=== PATIENT | male | born 1955 | race Caucasian/White ===

== ENCOUNTER 2019-08-19 16:01 | Emergency (ER) | payer BC, MEDICARE ==
--- OUTSIDE RECORDS SUMMARY | 2019-08-19 16:12 | XMS REPORT | Continuity of Care Document ---
:1955 External Reference #:[id number] Author Name Kishore Lewis M.D. (transmitted by agent of provider Jessica Richards) Address [address] [facility] [address] [place] [id number] Problems Active Problems Provider Date Pure hypercholesterolemia Kishore Leiws M.D. Onset: 12/13/2017 Social History Type Date Description Comments Sex Unknown ETOH Use Denies alcohol use Tobacco Use Start: Unknown End: Patient is a former smoker Recreational Drug Use Denies Drug Use Allergies, Adverse Reactions, Alerts Description No Known Drug Allergies Medications Active Medications SIG Qnty Indications Ordering Date Provider BD Pen use as directed 2-3 100units E11.65 Kishore Lewis Needle/Short/Ultra-Fi times per day Dory Naravez 9 ne/31G X 8mm 31G X 8 mm Misc Basaglar Kwikpen Inject 25 Units 30ml E11.65 Kishore Lewis Subcutaneously Dory Narvaez 9 100Unit/ML Solution Daily Pen-Inject Onetouch Delica Use For Fingersticks 100units E11.65 Kishore Lewis Lancets Extra Fine To Test Fasting Dory Narvaez 9 33G Blood Sugar Before Misc Meals And AT Bedtime Onetouch Ultra Use as Directed 1units E11.65 Kishore Lewis Control Dory Narvaez 9 Solution Pioglitazone HCL Take 1 Tablet Daily 90tabs E11.65 Kishore Lewis 45mg Brice NarvaezDTaqueria 9 Tablets Cyclobenzaprine HCL 1 tab by mouth three 90tabs M54.5 Kishore Lewis 5mg times a day as M., M.D. 8 Tablets needed Omeprazole Take 1 Capsule Daily 90caps K21.0 [facility] 20mg M., M.D. [address] Gamal Mcclure Use To Test Before 100units E11.65 [facility] Meals & AT Bedtime M., M.D. 8 Strips as Needed Advair Diskus inhale one puff by 180units J45.909 [facility] mouth twice a day M., M.D. 0 250-50mcg/Dose Aerosol J44.9 Clozapine 2 by mouth at 180tabs F41.9 [facility] 200mg Tablets bedtime M.D. F20.9 G47.00 Risperidone 1 tab by mouth 90tabs F20.9 [facility] 0.5mg Tablets M.D. Risperidone 1 tab by mouth at 90tabs F20.9 [facility]., 1mg Tablets bedtime M.D. Sertraline HCL 1 by mouth every 30tabs F33.9 [facility]., 100mg Tablets day M.D. F41.9 Cetirizine HCL take one tablet by 90tabs J30.9 [facility] 10mg Tablets mouth every day M.D. Atorvastatin Calcium Take 1 Tablet AT 90tabs E78.2 [facility]., 20mg Bedtime M.D. Tablets Janumet Take 1 Tablet 180tabs E11.65 [facility] 50-1000mg Tablets Twice A Day M.D. Medications Administered in Office Medication SIG Qnty Indications Ordering Provider Date Intradermal Mantoux Morro Flores, N.P. 02/27/2018 Injection Intradermal Mantoux Morro Flores, N.P. 02/20/2018 Injection Immunizations CPT Code Status Date Vaccine Lot # [id number] Given 02/11/2019 Flu Vaccine 3+Yrs Old(Fluzone) [id number] Given 03/01/2018 Flu Vaccine [id number] Vital Signs Date Vital Result Comment 08/19/2019 2:38pm BP Systolic 160 mmHg BP Diastolic 72 mmHg Height 72 inches 6'0" Heart Rate 108 /min Respiratory Rate 18 /min 07/15/2019 11:01am BP Systolic 138 mmHg BP Diastolic 65 mmHg Height 72 inches 6'0" Weight 239.00 lb BMI (Body Mass Index) 32.4 kg/m2 Heart Rate 94 /min Respiratory Rate 16 /min Results Test Acquired Date Facility Test Result H/L Range Note CBC With Diff 06/12/2019 [facility] [facility] WBC 10.0 10*3/uL (4.1-11.0) [address] [facility] (607)- - RBC 4.57 10*6/uL Low (4.60-6.10) HGB 13.2 g/dL Low (13.5-18.0) HCT 37.6 % Low (41.0-53.0) MCV 82.3 fL (80.0-95.0) MCH 28.9 pg (27.0-32.0) MCHC 35.1 g/dL (32.0-36.0) RDW 14.6 % High (10.5-14.5) PLT 209 10*3/uL (150-450) MPV 6.7 fL Low (7.1-10.7) Neut % 76.7 % High (35.0-75.0) Lymph % 15.3 % Low (16.0-52.0) Adams % 7.6 % (0.0-8.0) Eos % 0.0 % (0.0-5.0) Baso % 0.4 % (0.0-4.0) Neut # 7.7 10*3/uL (1.8-7.7) Lymph # 1.5 10*3/uL (1.2-4.8) Adams # 0.8 10*3/uL (0.0-0.8) Eos # 0.0 10*3/uL (0.0-0.5) Baso # 0.0 10*3/uL (0.0-0.2) CMP 06/12/2019 [facility] Sodium 140 mmol/L (136-145) [address] [facility] (607)- - Potassium 3.9 mmol/L (3.6-5.2) Chloride 106 mmol/L (100-108) Co2 26 mmol/L (22-31) Anion Gap 8 mmol/L (7-16) Urea Nitrogen 16 mg/dL (7-24) Creatinine 1.07 mg/dL (0.80-1.30) BUN/Creat Ratio 15.0 RATIO (10.0-20.0) Glucose 154 mg/dL High (70-99) Calcium 8.9 mg/dL (8.4-10.2) Total Protein 7.4 g/dL (6.4-8.2) Albumin 3.8 g/dL (3.2-4.5) Globulin 3.6 g/dL (2.7-4.3) Alb/Glob Ratio 1.1 RATIO Alkaline Phosphatase 148 U/L High (45-117) Bilirubin,Total 0.4 mg/dL (0.0-1.0) Ast (Sgot) 29 U/L (11-39) Alt (SGPT) 35 U/L (12-78) GFR >60 ml/min/1.73m2 (>59) GFR ( Amer) >60 ml/min/1.73m2 (>59) GFR Interpretation <SEE NOTE> 1 Hemoglobin A1c 06/12/2019 [facility] [place] Hemoglobin A1c @ 7.1 % High (4.0- 6.0) 2 [address] [facility] (607)- - Est Average Glucose 157 mg/dL Lipid 06/12/2019 [facility] [place] Cholesterol @ 172 mg/dL (0-200) [address] [facility] (607)- - Triglyceride @ 174 mg/dL (30-200) HDL Cholesterol @ 90 mg/dL (>40) 3 Chol/HDL Ratio 1.9 RATIO 4 LDL Chol (Calc) 47 mg/dL (<130) 5 Laboratory 06/12/2019 [facility] [place] TSH,Ultrasensitive @ 2.920 (0.360- 4.170) test finding [address] [facility] [facility] [place] mIU/L (607)- - CBC With Diff 04/10/2019 [facility] [place] WBC 6.4 (4.1-11.0) [facility] [place] 10*3/uL (607)- - RBC 4.94 10*6/uL (4.60-6.10) HGB 14.4 g/dL (13.5-18.0) HCT 41.5 % (41.0-53.0) MCV 83.9 fL (80.0-95.0) MCH 29.1 pg (27.0-32.0) MCHC 34.7 g/dL (32.0-36.0) RDW 14.6 % High (10.5-14.5) PLT 229 10*3/uL (150-450) MPV 6.6 fL Low (7.1-10.7) Neut % 74.8 % (35.0-75.0) Lymph % 16.8 % (16.0-52.0) Adams % 8.1 % High (0.0-8.0) Eos % 0.0 % (0.0-5.0) Baso % 0.3 % (0.0-4.0) Neut # 4.8 10*3/uL (1.8-7.7) Lymph # 1.1 10*3/uL Low (1.2-4.8) Adams # 0.5 10*3/uL (0.0-0.8) Eos # 0.0 10*3/uL (0.0-0.5) Baso # 0.0 10*3/uL (0.0-0.2) CMP 04/10/2019 [facility] [place] Sodium 140 mmol/L (136-145) [address] [facility] [facility] (607)- - Potassium 4.1 mmol/L (3.6-5.2) Chloride 109 mmol/L High (100-108) Co2 28 mmol/L (22-31) Anion Gap 3 mmol/L Low (7-16) Urea Nitrogen 13 mg/dL (7-24) Creatinine 1.09 mg/dL (0.80-1.30) BUN/Creat Ratio 11.9 RATIO (10.0-20.0) Glucose 128 mg/dL High (70-99) Calcium 9.2 mg/dL (8.4-10.2) Total Protein 7.5 g/dL (6.4-8.2) Albumin 4.0 g/dL (3.2-4.5) Globulin 3.5 g/dL (2.7-4.3) Alb/Glob Ratio 1.1 RATIO Alkaline Phosphatase 111 U/L (45-117) Bilirubin,Total 0.4 mg/dL (0.0-1.0) Ast (Sgot) 27 U/L (11-39) Alt (SGPT) 27 U/L (12-78) GFR >60 ml/min/1.73m2 (>59) GFR ( Amer) >60 ml/min/1.73m2 (>59) GFR Interpretation <SEE NOTE> 6 Lipid 04/10/2019 [facility] Cholesterol @ 196 mg/dL (0-200) [address] [facility] (607)- - Triglyceride @ 88 mg/dL (30-200) HDL Cholesterol @ 93 mg/dL (>40) 7 Chol/HDL Ratio 2.1 RATIO 8 LDL Chol (Calc) 85 mg/dL (<130) 9 Laboratory 04/10/2019 [facility] TSH,Ultrasensitive @ 2.710 (0.360- 4.170) test finding [address] [facility] mIU/L (607)- - Hemoglobin 04/10/2019 [facility] Hemoglobin A1c @ 7.8 % High (4.0-6.0) 10 A1c [address] [facility] (607)- - Est Average Glucose 177 mg/dL Laboratory test 04/10/2019 [facility] 25 Hydroxy Vit 29 ng/mL Low (31- 100) 11 finding [address] [facility] D @ (607)- - 1 NORMAL KIDNEY FUNCTION OR MILD DISEASE - GFR >OR= 60 CHRONIC KIDNEY DISEASE - GFR 15 - 59 RENAL FAILURE - GFR <15 Est. GFR calculation based on the MDRD study equation, which assumes a steady state for creatinine. Est. GFR should not be used for medication dosing. 2 Performed using [employer] immunoassay. Care must be taken when interpreting HbA1c results in patients with a hemoglobin variant or decreased erythrocyte lifespan. Values 5.7 - 6.4% suggest prediabetes. Values >=6.5% are diagnostic for diabetes. REFERENCE: DIABETES CARE 2018: 41(S13-S27). 3 PER NCEP ATP III GUIDELINES: RESULTS LOWER THAN 40 MG/DL ARE SUGGESTIVE OF INCREASED RISK FOR CORONARY ARTERY DISEASE. RESULTS > OR = TO 60 MG/DL ARE CONSIDERED A NEGATIVE RISK FACTOR. 4 INTERPRETATION OF CHOL-HDL RATIO CHD RISK FEMALE MALE VERY HIGH >8.3 >14.3 HIGH 5.6- 8.3 6.7- 14.3 AVERAGE 3.7- 5.6 4.0- 6.7 BELOW AVERAGE 2.5- 3.7 2.7- 4.0 PROTECTED <2.5 <2.7 5 PER NCEP ATP III GUIDELINES: OPTIMAL < 100 NEAR OPTIMAL 100 - 129 BORDERLINE HIGH 130 - 159 HIGH 160 - 189 VERY HIGH > 189 6 NORMAL KIDNEY FUNCTION OR MILD DISEASE - GFR >OR= 60 CHRONIC KIDNEY DISEASE - GFR 15 - 59 RENAL FAILURE - GFR <15 Est. GFR calculation based on the MDRD study equation, which assumes a steady state for creatinine. Est. GFR should not be used for medication dosing. 7 PER NCEP ATP III GUIDELINES: RESULTS LOWER THAN 40 MG/DL ARE SUGGESTIVE OF INCREASED RISK FOR CORONARY ARTERY DISEASE. RESULTS > OR = TO 60 MG/DL ARE CONSIDERED A NEGATIVE RISK FACTOR. 8 INTERPRETATION OF CHOL-HDL RATIO CHD RISK FEMALE MALE VERY HIGH >8.3 >14.3 HIGH 5.6- 8.3 6.7- 14.3 AVERAGE 3.7- 5.6 4.0- 6.7 BELOW AVERAGE 2.5- 3.7 2.7- 4.0 PROTECTED <2.5 <2.7 9 PER NCEP ATP III GUIDELINES: OPTIMAL < 100 NEAR OPTIMAL 100 - 129 BORDERLINE HIGH 130 - 159 HIGH 160 - 189 VERY HIGH > 189 10 Performed using [employer] immunoassay. Care must be taken when interpreting HbA1c results in patients with a hemoglobin variant or decreased erythrocyte lifespan. Values 5.7 - 6.4% suggest prediabetes. Values >=6.5% are diagnostic for diabetes. REFERENCE: DIABETES CARE 2018: 41(S13-S27). 11 A REVIEW OF THE LITERATURE SUGGESTS THE FOLLOWING RANGES FOR THE CLASSIFICATION OF 25-OH VITAMIN D STATUS: VITAMIN D STATUS 25-OH VITAMIN D DEFICIENCY <20 NG/ML INSUFFICIENCY 20-30 NG/ML SUFFICIENCY 31 - 100 NG/ML TOXICITY > 100 NG/ML A PEDIATRIC REFERENCE RANGE HAS NOT BEEN ESTABLISHED USING THIS METHOD. Procedures Date Code Description Status 05/01/2019 42095 EKG Completed 06/11/2013 [id number] Colonoscopy Completed Medical Devices Description No Information Available Encounters Type Date Location Provider Dx Diagnosis Office Visit 07/15/2019 [facility] Kishore Lewis E78.2 Mixed hyperlipidemia 12:15p [facility] I95.1 Orthostatic hypotension J44.9 Chronic obstructive pulmonary disease, unspecified J45.909 Unspecified asthma, uncomplicated E11.65 Type 2 diabetes mellitus with hyperglycemia L20.9 Atopic dermatitis, unspecified J30.9 Allergic rhinitis, unspecified K21.0 Gastro-esophageal reflux disease with esophagitis K30 Functional dyspepsia K59.00 Constipation, unspecified M15.9 Polyosteoarthritis, unspecified M54.5 Low back pain M79.606 Pain in leg, unspecified F41.9 Anxiety disorder, unspecified F33.9 Major depressive disorder, recurrent, unspecified G47.00 Insomnia, unspecified F20.9 Schizophrenia, unspecified I45.10 Unspecified right bundle-branch block G43.009 Migraine w/o aura, not intractable, w/o status migrainosus N40.1 Benign prostatic hyperplasia with lower urinary tract symp R35.1 Nocturia E66.3 Overweight H53.30 Unspecified disorder of binocular vision E55.9 Vitamin D deficiency, unspecified K31.84 Gastroparesis S06.0x1D Concussion w Loc of 30 minutes or less, subs S13.4xxD Sprain of ligaments of cervical spine, subsequent encounter Office Visit 06/26/2019 2:30p [facility] Kishore Lewis E78.2 Mixed hyperlipidemia Dory Narvaez I95.1 Orthostatic hypotension J44.9 Chronic obstructive pulmonary disease, unspecified J45.909 Unspecified asthma, uncomplicated E11.65 Type 2 diabetes mellitus with hyperglycemia L20.9 Atopic dermatitis, unspecified J30.9 Allergic rhinitis, unspecified K21.0 Gastro-esophageal reflux disease with esophagitis K30 Functional dyspepsia K59.00 Constipation, unspecified M15.9 Polyosteoarthritis, unspecified M54.5 Low back pain M79.606 Pain in leg, unspecified F41.9 Anxiety disorder, unspecified F33.9 Major depressive disorder, recurrent, unspecified G47.00 Insomnia, unspecified F20.9 Schizophrenia, unspecified I45.10 Unspecified right bundle-branch block G43.009 Migraine w/o aura, not intractable, w/o status migrainosus N40.1 Benign prostatic hyperplasia with lower urinary tract symp R35.1 Nocturia E66.3 Overweight H53.30 Unspecified disorder of binocular vision E55.9 Vitamin D deficiency, unspecified K31.84 Gastroparesis Office Visit 06/12/2019 2:30p [facility] Kishore Lewis E78.2 Mixed hyperlipidemia Dory Narvaez I95.1 Orthostatic hypotension J44.9 Chronic obstructive pulmonary disease, unspecified J45.909 Unspecified asthma, uncomplicated E11.65 Type 2 diabetes mellitus with hyperglycemia L20.9 Atopic dermatitis, unspecified J30.9 Allergic rhinitis, unspecified K21.0 Gastro-esophageal reflux disease with esophagitis K30 Functional dyspepsia K59.00 Constipation, unspecified M15.9 Polyosteoarthritis, unspecified M54.5 Low back pain M79.606 Pain in leg, unspecified F41.9 Anxiety disorder, unspecified F33.9 Major depressive disorder, recurrent, unspecified G47.00 Insomnia, unspecified F20.9 Schizophrenia, unspecified I45.10 Unspecified right bundle-branch block G43.009 Migraine w/o aura, not intractable, w/o status migrainosus N40.1 Benign prostatic hyperplasia with lower urinary tract symp R35.1 Nocturia E66.3 Overweight H53.30 Unspecified disorder of binocular vision E55.9 Vitamin D deficiency, unspecified K31.84 Gastroparesis M25.512 Pain in left shoulder R07.9 Chest pain, unspecified Office Visit 05/01/2019 3:00p [facility] Kishore Lewis E78.2 Mixed hyperlipidemia M., M.D. I95.1 Orthostatic hypotension J44.9 Chronic obstructive pulmonary disease, unspecified J45.909 Unspecified asthma, uncomplicated E11.65 Type 2 diabetes mellitus with hyperglycemia L20.9 Atopic dermatitis, unspecified J30.9 Allergic rhinitis, unspecified K21.0 Gastro-esophageal reflux disease with esophagitis K30 Functional dyspepsia K59.00 Constipation, unspecified M15.9 Polyosteoarthritis, unspecified M54.5 Low back pain M79.606 Pain in leg, unspecified F41.9 Anxiety disorder, unspecified F33.9 Major depressive disorder, recurrent, unspecified G47.00 Insomnia, unspecified F20.9 Schizophrenia, unspecified I45.10 Unspecified right bundle-branch block G43.009 Migraine w/o aura, not intractable, w/o status migrainosus N40.1 Benign prostatic hyperplasia with lower urinary tract symp R35.1 Nocturia E66.3 Overweight H53.30 Unspecified disorder of binocular vision E55.9 Vitamin D deficiency, unspecified K31.84 Gastroparesis M25.512 Pain in left shoulder R07.9 Chest pain, unspecified Office Visit 04/10/2019 9:00a [facility] E78.2 Mixed hyperlipidemia Dory Narvaez I95.1 Orthostatic hypotension J44.9 Chronic obstructive pulmonary disease, unspecified J45.909 Unspecified asthma, uncomplicated E11.65 Type 2 diabetes mellitus with hyperglycemia L20.9 Atopic dermatitis, unspecified J30.9 Allergic rhinitis, unspecified K21.0 Gastro-esophageal reflux disease with esophagitis K30 Functional dyspepsia K59.00 Constipation, unspecified M15.9 Polyosteoarthritis, unspecified M54.5 Low back pain M79.606 Pain in leg, unspecified F41.9 Anxiety disorder, unspecified F33.9 Major depressive disorder, recurrent, unspecified G47.00 Insomnia, unspecified F20.9 Schizophrenia, unspecified I45.10 Unspecified right bundle-branch block G43.009 Migraine w/o aura, not intractable, w/o status migrainosus N40.1 Benign prostatic hyperplasia with lower urinary tract symp R35.1 Nocturia E66.3 Overweight H53.30 Unspecified disorder of binocular vision E55.9 Vitamin D deficiency, unspecified K31.84 Gastroparesis Z00.01 Encounter for general adult medical exam w abnormal findings Assessments Date Code Description Provider 08/19/2019 E78.2 Mixed hyperlipidemia Kishore Lewis M.D. 08/19/2019 I95.1 Orthostatic hypotension Kishore Lewis M.D. 08/19/2019 J44.9 Chronic obstructive pulmonary disease, Kishore Lewis M.D. unspecified 08/19/2019 J45.909 Unspecified asthma, uncomplicated Kishore Lewis M.D. 08/19/2019 E11.65 Type 2 diabetes mellitus with hyperglycemia Kishore Lewis M.D. 08/19/2019 L20.9 Atopic dermatitis, unspecified Kishore Lewis M.D. 08/19/2019 J30.9 Allergic rhinitis, unspecified Kishore Lewis M.D. 08/19/2019 K21.0 Gastro-esophageal reflux disease with Kishore Lewis M.D. esophagitis 08/19/2019 K30 Functional dyspepsia Kishore Lewis M.D. 08/19/2019 K59.00 Constipation, unspecified Kishore Lewis M.D. 08/19/2019 M15.9 Polyosteoarthritis, unspecified Kishore Lewis M.D. 08/19/2019 M54.5 Low back pain Kishore Lewis M.D. 08/19/2019 M79.606 Pain in leg, unspecified Kishore Lewis M.D. 08/19/2019 F41.9 Anxiety disorder, unspecified Kishore Lewis M.D. 08/19/2019 F33.9 Major depressive disorder, recurrent, Kishore Lewis M.D. unspecified 08/19/2019 G47.00 Insomnia, unspecified Kishore Lewis M.D. 08/19/2019 F20.9 Schizophrenia, unspecified Kishore Lewis M.D. 08/19/2019 I45.10 Unspecified right bundle-branch block Kishore Lewis M.D. 08/19/2019 G43.009 Migraine without aura, not intractable, Kishore Lewis M.D. without status migrainosus 08/19/2019 N40.1 Benign prostatic hyperplasia with lower Kishore Lewis M.D. urinary tract symptoms 08/19/2019 R35.1 Nocturia Kishore Lewis M.D. 08/19/2019 E66.3 Overweight Kishore Lewis M.D. 08/19/2019 H53.30 Unspecified disorder of binocular vision Kishore Lewis M.D. 08/19/2019 E55.9 Vitamin D deficiency, unspecified Kishore Lewis M.D. 08/19/2019 K31.84 Gastroparesis Kishore Lewis M.D. 07/16/2019 E78.2 Mixed hyperlipidemia Kishore Lewis M.D. 07/16/2019 I95.1 Orthostatic hypotension Kishore Lewis M.D. 07/16/2019 J44.9 Chronic obstructive pulmonary disease, Kishore Lewis M.D. unspecified 07/16/2019 J45.909 Unspecified asthma, uncomplicated Kishore Lewis M.D. 07/16/2019 E11.65 Type 2 diabetes mellitus with hyperglycemia Kishore Lewis M.D. 07/16/2019 L20.9 Atopic dermatitis, unspecified Kishore Lewis M.D. 07/16/2019 J30.9 Allergic rhinitis, unspecified Kishore Lewis M.D. 07/16/2019 K21.0 Gastro-esophageal reflux disease with Kishore Lewis M.D. esophagitis 07/16/2019 K30 Functional dyspepsia Kishore Lewis M.D. 07/16/2019 K59.00 Constipation, unspecified Kishore Lewis M.D. 07/16/2019 M15.9 Polyosteoarthritis, unspecified Kishore Lewis M.D. 07/16/2019 M54.5 Low back pain Kishore Lewis M.D. 07/16/2019 M79.606 Pain in leg, unspecified Kishore Lewis M.D. 07/16/2019 F41.9 Anxiety disorder, unspecified Kishore Lewis M.D. 07/16/2019 F33.9 Major depressive disorder, recurrent, Kishore Lewis M.D. unspecified 07/16/2019 G47.00 Insomnia, unspecified Kishore Lewis M.D. 07/16/2019 F20.9 Schizophrenia, unspecified Kishore Lewis M.D. 07/16/2019 I45.10 Unspecified right bundle-branch block Kishore Lewis M.D. 07/16/2019 G43.009 Migraine without aura, not intractable, Kishore Lewis M.D. without status migrainosus 07/16/2019 N40.1 Benign prostatic hyperplasia with lower Kishore Lewis M.D. urinary tract symptoms 07/16/2019 R35.1 Nocturia Kishore Lewis M.D. 07/16/2019 E66.3 Overweight Kishore Lewis M.D. 07/16/2019 H53.30 Unspecified disorder of binocular vision Kishore Lewis M.D. 07/16/2019 E55.9 Vitamin D deficiency, unspecified Kishore Lewis M.D. 07/16/2019 K31.84 Gastroparesis Kishore Lewis M.D. 07/15/2019 E78.2 Mixed hyperlipidemia Kishore Lewis M.D. 07/15/2019 I95.1 Orthostatic hypotension Kishore Lewis M.D. 07/15/2019 J44.9 Chronic obstructive pulmonary disease, Kishore Lewis M.D. unspecified 07/15/2019 J45.909 Unspecified asthma, uncomplicated Kishore Lewis M.D. 07/15/2019 E11.65 Type 2 diabetes mellitus with hyperglycemia Kishore Lewis M.D. 07/15/2019 L20.9 Atopic dermatitis, unspecified Kishore Lewis M.D. 07/15/2019 J30.9 Allergic rhinitis, unspecified Kishore Lewis M.D. 07/15/2019 K21.0 Gastro-esophageal reflux disease with Kishore Lewis M.D. esophagitis 07/15/2019 K30 Functional dyspepsia Kishore Lewis M.D. 07/15/2019 K59.00 Constipation, unspecified Kishore Lewis M.D. 07/15/2019 M15.9 Polyosteoarthritis, unspecified Kishore Lewis M.D. 07/15/2019 M54.5 Low back pain Kishore Lewis M.D. 07/15/2019 M79.606 Pain in leg, unspecified Kishore Lewis M.D. 07/15/2019 F41.9 Anxiety disorder, unspecified Kishore Lewis M.D. 07/15/2019 F33.9 Major depressive disorder, recurrent, Kishore Lewis M.D. unspecified 07/15/2019 G47.00 Insomnia, unspecified Kishore Lewis M.D. 07/15/2019 F20.9 Schizophrenia, unspecified Kishore Lewis M.D. 07/15/2019 I45.10 Unspecified right bundle-branch block Kishore Lewis M.D. 07/15/2019 G43.009 Migraine without aura, not intractable, Kishore Lewis M.D. without status migrainosus 07/15/2019 N40.1 Benign prostatic hyperplasia with lower Kishore Lewis M.D. urinary tract symptoms 07/15/2019 R35.1 Nocturia Kishore Lewis M.D. 07/15/2019 E66.3 Overweight Kishore Lewis M.D. 07/15/2019 H53.30 Unspecified disorder of binocular vision Kishore Lewis M.D. 07/15/2019 E55.9 Vitamin D deficiency, unspecified Kishore Lewis M.D. 07/15/2019 K31.84 Gastroparesis Kishore Lewis M.D. 07/15/2019 S06.0x1D Concussion with loss of consciousness of 30 Kishore Lewis M.D. minutes or less, subsequent encounter 07/15/2019 S13.4xxD Sprain of ligaments of cervical spine, Kishore Lewis M.D. subsequent encounter 06/26/2019 E78.2 Mixed hyperlipidemia Kishore Lewis M.D. 06/26/2019 I95.1 Orthostatic hypotension Kishore Lewis M.D. 06/26/2019 J44.9 Chronic obstructive pulmonary disease, Kishore Lewis M.D. unspecified 06/26/2019 J45.909 Unspecified asthma, uncomplicated Kishore Lewis M.D. 06/26/2019 E11.65 Type 2 diabetes mellitus with hyperglycemia Kishore Lewis M.D. 06/26/2019 L20.9 Atopic dermatitis, unspecified Kishore Lewis M.D. 06/26/2019 J30.9 Allergic rhinitis, unspecified Kishore Lewis M.D. 06/26/2019 K21.0 Gastro-esophageal reflux disease with Kishore Lewis M.D. esophagitis 06/26/2019 K30 Functional dyspepsia Kishore Lewis M.D. 06/26/2019 K59.00 Constipation, unspecified Kishore Lewis M.D. 06/26/2019 M15.9 Polyosteoarthritis, unspecified Kishore Lewis M.D. 06/26/2019 M54.5 Low back pain Kishore Lewis M.D. 06/26/2019 M79.606 Pain in leg, unspecified Kishore Lewis M.D. 06/26/2019 F41.9 Anxiety disorder, unspecified Kishore Lewis M.D. 06/26/2019 F33.9 Major depressive disorder, recurrent, Kishore Lewis M.D. unspecified 06/26/2019 G47.00 Insomnia, unspecified Kishore Lewis M.D. 06/26/2019 F20.9 Schizophrenia, unspecified Kishore Lewis M.D. 06/26/2019 I45.10 Unspecified right bundle-branch block Kishore Lewis M.D. 06/26/2019 G43.009 Migraine without aura, not intractable, Kishore Lewis M.D. without status migrainosus 06/26/2019 N40.1 Benign prostatic hyperplasia with lower Kishore Lewis M.D. urinary tract symptoms 06/26/2019 R35.1 Nocturia Kishore Lewis M.D. 06/26/2019 E66.3 Overweight Kishore Lewis M.D. 06/26/2019 H53.30 Unspecified disorder of binocular vision Kishore Lewis M.D. 06/26/2019 E55.9 Vitamin D deficiency, unspecified Kishore Lewis M.D. 06/26/2019 K31.84 Gastroparesis Kishore Lewis M.D. 06/12/2019 E78.2 Mixed hyperlipidemia Kishore Lewis M.D. 06/12/2019 I95.1 Orthostatic hypotension Kishore Lewis M.D. 06/12/2019 J44.9 Chronic obstructive pulmonary disease, Kishore Lewis M.D. unspecified 06/12/2019 J45.909 Unspecified asthma, uncomplicated Kishore Lewis M.D. 06/12/2019 E11.65 Type 2 diabetes mellitus with hyperglycemia Kishore Lewis M.D. 06/12/2019 L20.9 Atopic dermatitis, unspecified Kishore Lewis M.D. 06/12/2019 J30.9 Allergic rhinitis, unspecified Kishore Lewis M.D. 06/12/2019 K21.0 Gastro-esophageal reflux disease with Kishore Lewis M.D. esophagitis 06/12/2019 K30 Functional dyspepsia Kishore Lewis M.D. 06/12/2019 K59.00 Constipation, unspecified Kishore Lewis M.D. 06/12/2019 M15.9 Polyosteoarthritis, unspecified Kishore Lewis M.D. 06/12/2019 M54.5 Low back pain Kishore Lewis M.D. 06/12/2019 M79.606 Pain in leg, unspecified Kishore Lewis M.D. 06/12/2019 F41.9 Anxiety disorder, unspecified Kishore Lewis M.D. 06/12/2019 F33.9 Major depressive disorder, recurrent, Kishore Lewis M.D. unspecified 06/12/2019 G47.00 Insomnia, unspecified Kishore Lewis M.D. 06/12/2019 F20.9 Schizophrenia, unspecified Kishore Lewis M.D. 06/12/2019 I45.10 Unspecified right bundle-branch block Kishore Lewis M.D. 06/12/2019 G43.009 Migraine without aura, not intractable, Kishore Lewis M.D. without status migrainosus 06/12/2019 N40.1 Benign prostatic hyperplasia with lower Kishore Lewis M.D. urinary tract symptoms 06/12/2019 R35.1 Nocturia Kishore Lewis M.D. 06/12/2019 E66.3 Overweight Kishore Lewis M.D. 06/12/2019 H53.30 Unspecified disorder of binocular vision Kishore Lewis M.D. 06/12/2019 E55.9 Vitamin D deficiency, unspecified Kishore Lewis M.D. 06/12/2019 K31.84 Gastroparesis Kishore Lewis M.D. 06/12/2019 M25.512 Pain in left shoulder Kishore Lewis M.D. 06/12/2019 R07.9 Chest pain, unspecified Kishore Lewis M.D. 05/01/2019 E78.2 Mixed hyperlipidemia Kishore Lewis M.D. 05/01/2019 I95.1 Orthostatic hypotension Kishore Lewis M.D. 05/01/2019 J44.9 Chronic obstructive pulmonary disease, Kishore Lewis M.D. unspecified 05/01/2019 J45.909 Unspecified asthma, uncomplicated Kishore Lewis M.D. 05/01/2019 E11.65 Type 2 diabetes mellitus with hyperglycemia Kishore Lewis M.D. 05/01/2019 L20.9 Atopic dermatitis, unspecified Kishore Lewis M.D. 05/01/2019 J30.9 Allergic rhinitis, unspecified Kishore Lewis M.D. 05/01/2019 K21.0 Gastro-esophageal reflux disease with Kishore Lewis M.D. esophagitis 05/01/2019 K30 Functional dyspepsia Kishore Lewis M.D. 05/01/2019 K59.00 Constipation, unspecified Kishore Lewis M.D. 05/01/2019 M15.9 Polyosteoarthritis, unspecified Kishore Lewis M.D. 05/01/2019 M54.5 Low back pain Kishore Lewis M.D. 05/01/2019 M79.606 Pain in leg, unspecified Kishore Lewis M.D. 05/01/2019 F41.9 Anxiety disorder, unspecified Kishore Lewis M.D. 05/01/2019 F33.9 Major depressive disorder, recurrent, Kishore Lewis M.D. unspecified 05/01/2019 G47.00 Insomnia, unspecified Kishore Lewis M.D. 05/01/2019 F20.9 Schizophrenia, unspecified Kishore Lewis M.D. 05/01/2019 I45.10 Unspecified right bundle-branch block Kishore Lewis M.D. 05/01/2019 G43.009 Migraine without aura, not intractable, Kishore Lewis M.D. without status migrainosus 05/01/2019 N40.1 Benign prostatic hyperplasia with lower Kishore Lewis M.D. urinary tract symptoms 05/01/2019 R35.1 Nocturia Kishore Lewis M.D. 05/01/2019 E66.3 Overweight Kishore Lewis M.D. 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 05/01/2019 E55.9 Vitamin D deficiency, unspecified Kishore Lewis M.D. 05/01/2019 K31.84 Gastroparesis Kishore Lewis M.D. 05/01/2019 M25.512 Pain in left shoulder Kishore Lewis M.D. 05/01/2019 R07.9 Chest pain, unspecified Kishore Lewis M.D. 04/10/2019 E78.2 Mixed hyperlipidemia Kishore Lewis M.D. 04/10/2019 I95.1 Orthostatic hypotension Kishore Lewis M.D. 04/10/2019 J44.9 Chronic obstructive pulmonary disease, Kishore Lewis M.D. unspecified 04/10/2019 J45.909 Unspecified asthma, uncomplicated Kishore Lewis M.D. 04/10/2019 E11.65 Type 2 diabetes mellitus with hyperglycemia Kishore Lewis M.D. 04/10/2019 L20.9 Atopic dermatitis, unspecified Kishore Lewis M.D. 04/10/2019 J30.9 Allergic rhinitis, unspecified Kishore Lewis M.D. 04/10/2019 K21.0 Gastro-esophageal reflux disease with Kishore Lewis M.D. esophagitis 04/10/2019 K30 Functional dyspepsia Kishore Lewis M.D. 04/10/2019 K59.00 Constipation, unspecified Kishore Lewis M.D. 04/10/2019 M15.9 Polyosteoarthritis, unspecified Kishore Lewis M.D. 04/10/2019 M54.5 Low back pain Kishore Lewis M.D. 04/10/2019 M79.606 Pain in leg, unspecified Kishore Lewis M.D. 04/10/2019 F41.9 Anxiety disorder, unspecified Kishore Lewis M.D. 04/10/2019 F33.9 Major depressive disorder, recurrent, Kishore Lewis M.D. unspecified 04/10/2019 G47.00 Insomnia, unspecified Kishore Lewis M.D. 04/10/2019 F20.9 Schizophrenia, unspecified Kishore Lewis M.D. 04/10/2019 I45.10 Unspecified right bundle-branch block Kishore Lewis M.D. 04/10/2019 G43.009 Migraine without aura, not intractable, Kishore Lewis M.D. without status migrainosus 04/10/2019 N40.1 Benign prostatic hyperplasia with lower Kishore Lewis M.D. urinary tract symptoms 04/10/2019 R35.1 Nocturia Kishore Lewis M.D. 04/10/2019 E66.3 Overweight Kishore Lewis M.D. 04/10/2019 H53.30 Unspecified disorder of binocular vision Kishore Lewis M.D. 04/10/2019 E55.9 Vitamin D deficiency, unspecified Kishore Lewis M.D. 04/10/2019 K31.84 Gastroparesis Kishore Lewis M.D. 04/10/2019 Z00.01 Encounter for general adult medical Kishore Lewis M.D. examination with abnormal findings Plan of Treatment Future Appointment(s):12/23/2019 2:30 pm - Kishore Lewis M.D. at [facility]12/23/2019 - Kishore Lewis M.D.E78.2 Mixed hyperlipidemiaComments:DIET REVIEWED CONTINUE DIETWT LOSSF/U LAB FBWI95.1 Orthostatic hypotensionComments: STABLE AND CXHMFTSLGKUHV85.9 Chronic obstructive pulmonary disease, unspecifiedComments:HDGXIDT54.909 Unspecified asthma, uncomplicatedComments:MDI / NEBULIZER TX PRN AVOID EXPOSURE TO SMOKING OR TVLAKA75.65 Type 2 diabetes mellitus with hyperglycemiaComments:DIET REVIEWED CONTINUE DIETWT LOSSFS qAC AND HS PRN F/U FBW INSULIN WAS INCREASED TO 40 U LAST RSXBMH23.9 Atopic dermatitis, unspecifiedComments:SKIN CARE INSTRUCTIONS LOTION OR BABY OIL 2-3 APPLICATION PER DAYUSE MOISTURIZING SOAPAVOID PROLONGED WATER EXPOSUREAVOID USING HOT WATER IN XKOVDEQ06.9 Allergic rhinitis, unspecifiedComments:INCREASE PO FLUID USE ANTIHISTAMINE PRN SECOND HAND SMOKING ADXNRJIZPW21.0 Gastro- esophageal reflux disease with esophagitisComments:AVOID CAFFEINE, ETOH AND SPICY FOODSTUMS OR MYLANTA PRN CALL WITH PROBLEMS OR [id number] Functional dyspepsiaComments:AVOID CAFFEINE, ETOH AND SPICY FOODSTUMS OR MYLANTA PRN CALL WITH PROBLEMS OR HWQWNPGSZ28.00 Constipation, unspecifiedComments:MOM OR MIRALAX PRNHIGH FIBER DIETINCREASE PO ZWGQWJ44.9 Polyosteoarthritis, unspecifiedComments:EXERCISE/HEAT/MESSAGETYLENOL OR MOTRIN PRNAVOID HEAVY LIFTINGWT LOSS DUR MSKKYQZN44.5 Low back painComments:EXERCISE/HEAT / MESSAGEAVOID HEAVY LIFTING WT LOSSTYLENOL OR MOTRIN PRN DUR NOHCUUYO04.606 Pain in leg, unspecifiedComments:TYLENOL OR MOTRIN PRN EXERCISE/HEAT/MESSAGE DUR FKEXKYKF65.9 Anxiety disorder, unspecifiedComments:COUNCELLING AND REASSURANCE RELAXATION TECHNIQUES DISCUSSEDCOUNSELED RE: STRESSORS IN LIFE AVOID ALLENERGY/HIGH CAFFEINE YULBOSN25.9 Major depressive disorder, recurrent, unspecifiedComments:COUNCELLING AND REASSURANCE RELAXATION TECHNIQUES DISCUSSED COUNSELED RE: STRESSORS IN LIFEG47.00 Insomnia, unspecifiedComments:COUNCELLING AND REASSURANCE RELAXATION TECHNIQUES DISCUSSED COUNSELED RE: STRESSORS IN LIFE TYLENOLPM OR MOTRIN PM PRNF20.9 Schizophrenia, unspecifiedComments: COUNCELLING AND REASSURANCE RELAXATION TECHNIQUES DISCUSSED COUNSELED RE: STRESSORS IN LIFE F/U WITH MHCI45.10 Unspecified right bundle-branch blockComments:STABLE AND ASYMPTOMATICF/U WITH CARDIOLOGY PRNG43.009 Migraine without aura, not intractable, without status migrainosusComments:TYLENOL OR MOTRIN PRNRELAXATION/AVOID SAPIKLTZXJ14.1 Benign prostatic hyperplasia with lower urinary tract symptomsComments:QRRRVQCY23.1 NocturiaComments:JPZRPCUF86.3 OverweightComments:EXERCISE REGURALYDIET LDWMKRPZGXGB44.30 Unspecified disorder of binocular visionComments:USE GLASSES/CONTACTSF/U WITH LPAJAADGBJEJGP26.9 Vitamin D deficiency, unspecifiedComments:INCREASE EXPOSURE TO SUNREVIEW OF DIETK31.84 GastroparesisComments:F/U WITH HELP DESK ASSOCIATE PRN Functional Status Description No Information Available Mental Status Description No Information Available Referrals Description No Information Available
--- OUTSIDE RECORDS SUMMARY | 2019-08-19 16:12 | XMS REPORT | Continuity of Care Document ---
:1955 External Reference #:[id number] Author Name Kishore Lewis M.D. Address [address] [place] [address] [place] [id number] Problems Active Problems Provider Date Pure hypercholesterolemia Kishore Lewis M.D. Onset: 12/13/2017 Social History Type Date [...] E11.65 Kishore Lewis Needle/Short/Ultra-Fi times per day Brice NarvaezDTaqueria 9 ne/31G X 8mm 31G X 8 mm [facility] Basaglar Kwikpen Inject 25 Units 30ml E11.65 Kishore Lewis Subcutaneously Brice NarvaezDTaqueria 9 100Unit/ML Solution Daily Pen-Inject Onetouch Delica Use For Fingersticks 100units E11.65 Kishore Lewis Lancets Extra Fine To Test Fasting Dory Narvaez 9 33G Blood Sugar Before [facility] Meals And AT Bedtime Onetouch Ultra Use as Directed 1units E11.65 Kishore Lewis Control MBrice MengDTaqueria 9 Solution Pioglitazone HCL Take 1 Tablet Daily 90tabs E11.65 Kishore Lewis 45mg M. MTaqueriaDTaqueria 9 Tablets Cyclobenzaprine HCL 1 tab by mouth three 90tabs M54.5 Kishore Lewis 5mg times a day as Dory Narvaez 8 Tablets needed Omeprazole Take 1 Capsule Daily 90caps K21.0 [facility] 20mg M., M.D. [address] Gamal Mcclure Use To Test Before 100units E11.65 [facility] Meals & AT Bedtime M., M.D. 8 Strips as Needed Advair Diskus inhale one puff by 180units J45.909 [facility] mouth twice a day M., M.D. 0 250-50mcg/Dose Aerosol J44.9 Clozapine 2 by mouth at 180tabs F41.9 [facility] 200mg Tablets bedtime M.D. F20.9 G47.00 Risperidone 1 tab by mouth 90tabs F20.9 [facility] 0.5mg Tablets M.D. Risperidone 1 tab by mouth at 90tabs F20.9 [facility] 1mg Tablets bedtime M.D. Sertraline HCL 1 by mouth every 30tabs F33.9 [facility] 100mg Tablets day M.D. F41.9 Cetirizine HCL take one tablet by 90tabs J30.9 [facility] 10mg Tablets mouth every day M.D. Atorvastatin Calcium Take 1 Tablet AT 90tabs E78.2 [facility] 20mg Bedtime M.D. Tablets Janumet Take 1 Tablet 180tabs E11.65 [facility] 50-1000mg Tablets Twice A Day M.D. Medications Administered in Office Medication SIG Qnty Indications Ordering Provider Date Intradermal Mantoux Morro Flores, N.P. 02/27/2018 Injection Intradermal Mantoux Morro Flores, N.P. 02/20/2018 Injection Immunizations CPT Code Status Date Vaccine Lot # [id number] Given 02/11/2019 Flu Vaccine 3+Yrs Old(Fluzone) [id number] Given 03/01/2018 Flu Vaccine [id number] Vital Signs Date Vital Result Comment 07/15/2019 11:01am BP Systolic 138 mmHg BP Diastolic 65 mmHg Height 72 inches 6'0" Weight 239.00 lb BMI (Body Mass Index) 32.4 kg/m2 Heart Rate 94 /min Respiratory Rate 16 /min 06/26/2019 2:27pm BP Systolic 145 mmHg BP Diastolic 79 mmHg Height 72 inches 6'0" Weight 240.00 lb BMI (Body Mass Index) 32.5 kg/m2 Heart Rate 89 /min Respiratory Rate 16 /min Results Test Acquired Date Facility Test Result H/L Range Note CBC With Diff 06/12/2019 [facility] WBC 10.0 10*3/uL (4.1-11.0) [address] (607)- - RBC 4.57 10*6/uL Low (4.60-6.10) HGB 13.2 g/dL Low (13.5-18.0) HCT 37.6 % Low (41.0-53.0) MCV 82.3 fL (80.0-95.0) MCH 28.9 pg (27.0-32.0) MCHC 35.1 g/dL (32.0-36.0) RDW 14.6 % High (10.5-14.5) PLT 209 10*3/uL (150-450) MPV 6.7 fL Low (7.1-10.7) Neut % 76.7 % High (35.0-75.0) Lymph % 15.3 % Low (16.0-52.0) [place] % 7.6 % (0.0-8.0) Eos % 0.0 % (0.0-5.0) Baso % 0.4 % (0.0-4.0) Neut # 7.7 10*3/uL (1.8-7.7) Lymph # 1.5 10*3/uL (1.2-4.8) [place] # 0.8 10*3/uL (0.0-0.8) Eos # 0.0 10*3/uL (0.0-0.5) Baso # 0.0 10*3/uL (0.0-0.2) CMP 06/12/2019 [facility] Sodium 140 mmol/L (136-145) [address] [...] <SEE NOTE> 1 Hemoglobin A1c 06/12/2019 [facility] Hemoglobin A1c @ 7.1 % High (4.0- 6.0) 2 [address] (607)- - Est Average Glucose 157 mg/dL Lipid 06/12/2019 [facility] Cholesterol @ 172 mg/dL (0-200) [address] (607)- - Triglyceride @ 174 mg/dL (30-200) HDL Cholesterol @ 90 mg/dL (>40) 3 Chol/HDL Ratio 1.9 RATIO 4 LDL Chol (Calc) 47 mg/dL (<130) 5 Laboratory 06/12/2019 [facility] TSH,Ultrasensitive @ 2.920 (0.360- 4.170) test finding [address] mIU/L (607)- - Laboratory 04/10/2019 [facility] 25 Hydroxy Vit D @ 29 Low (31-100) 6 test finding [address] ng/mL (607)- - Hemoglobin 04/10/2019 [facility] Hemoglobin A1c @ 7.8 % High (4.0-6.0) 7 A1c [address] (607)- - Est Average Glucose 177 mg/dL Laboratory 04/10/2019 [facility] TSH,Ultrasensitive @ 2.710 (0.360- 4.170) test finding [address] mIU/L (607)- - Lipid 04/10/2019 [facility] Cholesterol @ 196 (0-200) [address] mg/dL (607)- - Triglyceride @ 88 mg/dL (30-200) HDL Cholesterol @ 93 mg/dL (>40) 8 Chol/HDL Ratio 2.1 RATIO 9 LDL Chol (Calc) 85 mg/dL (<130) 10 CMP 04/10/2019 [facility] Sodium 140 mmol/L (136-145) [address] (607)- - Potassium 4.1 mmol/L (3.6-5.2) Chloride [...] >60 ml/min/1.73m2 (>59) GFR Interpretation <SEE NOTE> 11 CBC With Diff 04/10/2019 [facility] WBC 6.4 10*3/uL (4.1-11.0) [address] (607)- - RBC 4.94 10*6/uL (4.60-6.10) HGB 14.4 g/dL (13.5-18.0) HCT 41.5 % (41.0-53.0) MCV 83.9 fL (80.0-95.0) MCH 29.1 pg (27.0-32.0) MCHC 34.7 g/dL (32.0-36.0) RDW 14.6 % High (10.5-14.5) PLT 229 10*3/uL (150-450) MPV 6.6 fL Low (7.1-10.7) Neut % 74.8 % (35.0-75.0) Lymph % 16.8 % (16.0-52.0) [place] % 8.1 % High (0.0-8.0) Eos % 0.0 % (0.0-5.0) Baso % 0.3 % (0.0-4.0) Neut # 4.8 10*3/uL (1.8-7.7) Lymph # 1.1 10*3/uL Low (1.2-4.8) [place] # 0.5 10*3/uL (0.0-0.8) Eos # 0.0 10*3/uL (0.0-0.5) Baso # 0.0 10*3/uL (0.0-0.2) CBC With Diff 02/04/2019 [facility] WBC 5.1 10*3/uL (4.1-11.0) [address] (607)- - RBC 4.59 10*6/uL Low (4.60-6.10) HGB 13.6 g/dL (13.5-18.0) HCT 38.5 % Low (41.0-53.0) MCV 84.1 fL (80.0-95.0) MCH 29.6 pg (27.0-32.0) MCHC 35.2 g/dL (32.0-36.0) RDW 14.3 % (10.5-14.5) PLT 196 10*3/uL (150-450) MPV 7.0 fL Low (7.1-10.7) Neut % 72.1 % (35.0-75.0) Lymph % 19.2 % (16.0-52.0) [place] % 8.5 % High (0.0-8.0) Eos % 0.0 % (0.0-5.0) Baso % 0.2 % (0.0-4.0) Neut # 3.7 10*3/uL (1.8-7.7) Lymph # 1.0 10*3/uL Low (1.2-4.8) [place] # 0.4 10*3/uL (0.0-0.8) Eos # 0.0 10*3/uL (0.0-0.5) Baso # 0.0 10*3/uL (0.0-0.2) CMP 02/04/2019 [facility] Sodium 139 mmol/L (136-145) [address] (169)- - Potassium 4.2 mmol/L (3.6-5.2) Chloride 104 mmol/L (100-108) Co2 27 mmol/L (22-31) Anion Gap 8 mmol/L (7-16) Urea Nitrogen 16 mg/dL (7-24) Creatinine 1.19 mg/dL (0.80-1.30) BUN/Creat Ratio 13.4 RATIO (10.0-20.0) Glucose 396 mg/dL High (70-99) Calcium 9.0 mg/dL (8.4-10.2) Total Protein 6.9 g/dL (6.4-8.2) Albumin 3.9 g/dL (3.2-4.5) Globulin 3.0 g/dL (2.7-4.3) Alb/Glob Ratio 1.3 RATIO Alkaline Phosphatase 154 U/L High (45-117) Bilirubin,Total 0.3 mg/dL (0.0-1.0) Ast (Sgot) 22 U/L (11-39) Alt (SGPT) 31 U/L (12-78) GFR >60 ml/min/1.73m2 (>59) GFR ( Amer) >60 ml/min/1.73m2 (>59) GFR Interpretation <SEE NOTE> 12 Hemoglobin A1c 02/04/2019 [facility] Hemoglobin A1c @ 9.0 % High (4.0- 6.0) 13 [address] (620)- - Est Average Glucose 212 mg/dL Lipid 02/04/2019 [facility] Cholesterol @ 169 mg/dL (0-200) [address] (607)- - Triglyceride @ 249 mg/dL High (30-200) HDL Cholesterol @ 67 mg/dL (>40) 14 Chol/HDL Ratio 2.5 RATIO 15 LDL Chol (Calc) 52 mg/dL (<130) 16 Laboratory 02/04/2019 [facility] TSH,Ultrasensitive @ 4.050 (0.360- 4.170) test finding [facility] mIU/L (607)- - 1 NORMAL KIDNEY FUNCTION OR MILD DISEASE - GFR >OR= 60 CHRONIC KIDNEY DISEASE - GFR 15 - 59 RENAL FAILURE - GFR <15 Est. GFR calculation based on the MDRD study equation, which assumes a steady state for creatinine. Est. GFR should not be used for medication dosing. 2 Performed using LifeShield immunoassay. Care must be taken when interpreting [...] - 189 VERY HIGH > 189 6 A REVIEW OF THE LITERATURE SUGGESTS THE FOLLOWING RANGES FOR THE CLASSIFICATION OF 25-OH VITAMIN D STATUS: VITAMIN D STATUS 25-OH VITAMIN D DEFICIENCY <20 NG/ML INSUFFICIENCY 20-30 NG/ML SUFFICIENCY 31 - 100 NG/ML TOXICITY > 100 NG/ML A PEDIATRIC REFERENCE RANGE HAS NOT BEEN ESTABLISHED USING THIS METHOD. 7 Performed using LifeShield immunoassay. Care must be taken when interpreting HbA1c results in patients with a hemoglobin variant or decreased erythrocyte lifespan. Values 5.7 - 6.4% suggest prediabetes. Values >=6.5% are diagnostic for diabetes. REFERENCE: DIABETES CARE 2018: 41(S13-S27). 8 PER NCEP ATP III GUIDELINES: RESULTS LOWER THAN 40 MG/DL ARE SUGGESTIVE OF INCREASED RISK FOR CORONARY ARTERY DISEASE. RESULTS > OR = TO 60 MG/DL ARE CONSIDERED A NEGATIVE RISK FACTOR. 9 INTERPRETATION OF CHOL-HDL RATIO CHD RISK FEMALE MALE VERY HIGH >8.3 >14.3 HIGH 5.6- 8.3 6.7- 14.3 AVERAGE 3.7- 5.6 4.0- 6.7 BELOW AVERAGE 2.5- 3.7 2.7- 4.0 PROTECTED <2.5 <2.7 10 PER NCEP ATP III GUIDELINES: OPTIMAL < 100 NEAR OPTIMAL 100 - 129 BORDERLINE HIGH 130 - 159 HIGH 160 - 189 VERY HIGH > 189 11 NORMAL KIDNEY FUNCTION OR MILD DISEASE - GFR >OR= 60 CHRONIC KIDNEY DISEASE - GFR 15 - 59 RENAL FAILURE - GFR <15 Est. GFR calculation based on the MDRD study equation, which assumes a steady state for creatinine. Est. GFR should not be used for medication dosing. 12 NORMAL KIDNEY FUNCTION OR MILD DISEASE - GFR >OR= 60 CHRONIC KIDNEY DISEASE - GFR 15 - 59 RENAL FAILURE - GFR <15 Est. GFR calculation based on the MDRD study equation, which assumes a steady state for creatinine. Est. GFR should not be used for medication dosing. 13 Performed using LifeShield immunoassay. Care must be taken when interpreting HbA1c results in patients with a hemoglobin variant or decreased erythrocyte lifespan. Values 5.7 - 6.4% suggest prediabetes. Values >=6.5% are diagnostic for diabetes. REFERENCE: DIABETES CARE 2018: 41(S13-S27). 14 PER NCEP ATP III GUIDELINES: RESULTS LOWER THAN 40 MG/DL ARE SUGGESTIVE OF INCREASED RISK FOR CORONARY ARTERY DISEASE. RESULTS > OR = TO 60 MG/DL ARE CONSIDERED A NEGATIVE RISK FACTOR. 15 INTERPRETATION OF CHOL-HDL RATIO CHD RISK FEMALE MALE VERY HIGH >8.3 >14.3 HIGH 5.6- 8.3 6.7- 14.3 AVERAGE 3.7- 5.6 4.0- 6.7 BELOW AVERAGE 2.5- 3.7 2.7- 4.0 PROTECTED <2.5 <2.7 16 PER NCEP ATP III GUIDELINES: OPTIMAL < 100 NEAR OPTIMAL 100 - 129 BORDERLINE HIGH 130 - 159 HIGH 160 - 189 VERY HIGH > 189 Procedures Date Code Description Status 05/01/2019 39803 EKG Completed 06/11/2013 [id number] Colonoscopy Completed Medical Devices Description No Information Available Encounters Type Date Location Provider Dx Diagnosis Office Visit 07/15/2019 [facility] Kishore Lewis, E78.2 Mixed hyperlipidemia 12:15p M.D. I95.1 Orthostatic hypotension J44.9 Chronic obstructive [...] spine, subsequent encounter Office Visit 06/26/2019 2:30p [place] [facility] Mixed hyperlipidemia Dory Narvaez I95.1 Orthostatic [...] unspecified K31.84 Gastroparesis Office Visit 06/12/2019 2:30p [facility] massiel E78.2 Mixed hyperlipidemia Dory Narvaez I95.1 Orthostatic [...] Chest pain, unspecified Office Visit 05/01/2019 3:00p [place] [facility] Kishore Lewis E78.2 Mixed hyperlipidemia Dory [...] Chest pain, unspecified Office Visit 04/10/2019 9:00a [place] [facility] JoshuaKishore vigil E78.2 Mixed hyperlipidemia Dory Narvaez I95.1 Orthostatic [...] general adult medical exam w abnormal findings Office Visit 02/11/2019 3:00p [place] [facility] Kishore Lewis E78.2 Mixed hyperlipidemia Dory [...] E55.9 Vitamin D deficiency, unspecified K31.84 Gastroparesis Z23 Encounter for immunization Office Visit 02/04/2019 2:30p [place] [facility] Kishore Lewis E78.2 Mixed hyperlipidemia Dory [...] E55.9 Vitamin D deficiency, unspecified K31.84 Gastroparesis Assessments Date Code Description Provider 07/15/2019 E78.2 Mixed hyperlipidemia Kishore Lewis M.D. [...] 05/01/2019 G43.009 Migraine without aura, not intractable, JoshuaKishore vigil M.D. without status migrainosus 05/01/2019 N40.1 Benign [...] Kishore Lewis M.D. examination with abnormal findings 02/11/2019 E78.2 Mixed hyperlipidemia Kishore Lewis M.D. 02/11/2019 I95.1 Orthostatic hypotension Kishore Lewis M.D. 02/11/2019 J44.9 Chronic obstructive pulmonary disease, Kishore Lewis M.D. unspecified 02/11/2019 J45.909 Unspecified asthma, uncomplicated Kishore Lewis M.D. 02/11/2019 E11.65 Type 2 diabetes mellitus with hyperglycemia Kishore Lewis M.D. 02/11/2019 L20.9 Atopic dermatitis, unspecified Kishore Lewis M.D. 02/11/2019 J30.9 Allergic rhinitis, unspecified Kishore Lewis M.D. 02/11/2019 K21.0 Gastro-esophageal reflux disease with Kishore Lewis M.D. esophagitis 02/11/2019 K30 Functional dyspepsia Kishore Lewis M.D. 02/11/2019 K59.00 Constipation, unspecified Kishore Lewis M.D. 02/11/2019 M15.9 Polyosteoarthritis, unspecified Kishore Lewis M.D. 02/11/2019 M54.5 Low back pain Kishore Lewis M.D. 02/11/2019 M79.606 Pain in leg, unspecified Kishore Lewis M.D. 02/11/2019 F41.9 Anxiety disorder, unspecified Kishore Lewis M.D. 02/11/2019 F33.9 Major depressive disorder, recurrent, Kishore Lewis M.D. unspecified 02/11/2019 G47.00 Insomnia, unspecified Kishore Lewis M.D. 02/11/2019 F20.9 Schizophrenia, unspecified Kishore Lewis M.D. 02/11/2019 I45.10 Unspecified right bundle-branch block Kishore Lewis M.D. 02/11/2019 G43.009 Migraine without aura, not intractable, Kishore Lewis M.D. without status migra 02/11/2019 N40.1 Benign prostatic hyperplasia with lower Kishore Lewis M.D. urinary tract sympto 02/11/2019 R35.1 Nocturia Kishore Lewis M.D. 02/11/2019 E66.3 Overweight Kishore Lewis M.D. 02/11/2019 H53.30 Unspecified disorder of binocular vision Kishore Lewis M.D. 02/11/2019 E55.9 Vitamin D deficiency, unspecified Kishore Lewis M.D. 02/11/2019 K31.84 Gastroparesis Kishore Lewis M.D. 02/11/2019 Z23 Encounter for immunization Kishore Lewis M.D. 02/04/2019 E78.2 Mixed hyperlipidemia Kishore Lewis M.D. 02/04/2019 I95.1 Orthostatic hypotension Kishore Lewis M.D. 02/04/2019 J44.9 Chronic obstructive pulmonary disease, Kishore Lewis M.D. unspecified 02/04/2019 J45.909 Unspecified asthma, uncomplicated Kishore Lewis M.D. 02/04/2019 E11.65 Type 2 diabetes mellitus with hyperglycemia Kishore Lewis M.D. 02/04/2019 L20.9 Atopic dermatitis, unspecified Kishore Lewis M.D. 02/04/2019 J30.9 Allergic rhinitis, unspecified Kishore Lewis M.D. 02/04/2019 K21.0 Gastro-esophageal reflux disease with Kishore Lewis M.D. esophagitis 02/04/2019 K30 Functional dyspepsia Kishore Lewis M.D. 02/04/2019 K59.00 Constipation, unspecified Kishore Lewis M.D. 02/04/2019 M15.9 Polyosteoarthritis, unspecified Kishore Lewis M.D. 02/04/2019 M54.5 Low back pain Kishore Lewis M.D. 02/04/2019 M79.606 Pain in leg, unspecified Kishore Lewis M.D. 02/04/2019 F41.9 Anxiety disorder, unspecified Kishore Lewis M.D. 02/04/2019 F33.9 Major depressive disorder, recurrent, Kishore Lewis M.D. unspecified 02/04/2019 G47.00 Insomnia, unspecified Kishore Lewis M.D. 02/04/2019 F20.9 Schizophrenia, unspecified Kishore Lewis M.D. 02/04/2019 I45.10 Unspecified right bundle-branch block Kishore Lewis M.D. 02/04/2019 G43.009 Migraine without aura, not intractable, Kishore Lewis M.D. without status migra 02/04/2019 N40.1 Benign prostatic hyperplasia with lower Kishore Lewis M.D. urinary tract sympto 02/04/2019 R35.1 Nocturia Kishore Lewis M.D. 02/04/2019 E66.3 Overweight Kishore Lewis M.D. 02/04/2019 H53.30 Unspecified disorder of binocular vision Kishore Lewis M.D. 02/04/2019 E55.9 Vitamin D deficiency, unspecified Kishore Lewis M.D. 02/04/2019 K31.84 Gastroparesis Kishore Lewis M.D. Plan of Treatment Future Appointment(s):12/23/2019 2:30 pm - Kishore Lewis M.D. at [facility]07/16/2019 - Kishore Lewis M.D.E78.2 Mixed hyperlipidemiaComments:DIET REVIEWED CONTINUE DIETWT LOSSF/U LAB FBWI95.1 Orthostatic hypotensionComments: STABLE AND RRKRLIBJDOLEK13.9 Chronic obstructive pulmonary disease, unspecifiedComments:OWZSFBM34.909 Unspecified asthma, uncomplicatedComments:MDI / NEBULIZER TX PRN AVOID EXPOSURE TO SMOKING OR ADIWKD62.65 Type 2 diabetes mellitus with hyperglycemiaComments:DIET REVIEWED CONTINUE DIETWT LOSSFS qAC AND HS PRN F/U FBW INSULIN WAS INCREASED TO 40 U LAST DNAPCI45.9 Atopic dermatitis, unspecifiedComments:SKIN CARE INSTRUCTIONS LOTION OR BABY OIL 2-3 APPLICATION PER DAYUSE MOISTURIZING SOAPAVOID PROLONGED WATER EXPOSUREAVOID USING HOT WATER IN RBTYNTC40.9 Allergic rhinitis, unspecifiedComments:INCREASE PO FLUID USE ANTIHISTAMINE PRN SECOND HAND SMOKING EDNEVSQJQI67.0 Gastro- esophageal reflux disease with esophagitisComments:AVOID CAFFEINE, ETOH AND SPICY FOODSTUMS OR MYLANTA PRN CALL WITH PROBLEMS OR [id number] Functional dyspepsiaComments:AVOID CAFFEINE, ETOH AND SPICY FOODSTUMS OR MYLANTA PRN CALL WITH PROBLEMS OR PDYGJMXYJ79.00 Constipation, unspecifiedComments:MOM OR MIRALAX PRNHIGH FIBER DIETINCREASE PO VFPVQB35.9 Polyosteoarthritis, unspecifiedComments:EXERCISE/HEAT/MESSAGETYLENOL OR MOTRIN PRNAVOID HEAVY LIFTINGWT LOSS DUR CZMDGRDS71.5 Low back painComments:EXERCISE/HEAT / MESSAGEAVOID HEAVY LIFTING WT LOSSTYLENOL OR MOTRIN PRN DUR XWOWXVWC59.606 Pain in leg, unspecifiedComments:TYLENOL OR MOTRIN PRN EXERCISE/HEAT/MESSAGE DUR OCANDFHM53.9 Anxiety disorder, unspecifiedComments:COUNCELLING AND REASSURANCE RELAXATION TECHNIQUES DISCUSSEDCOUNSELED RE: STRESSORS IN LIFE AVOID ALLENERGY/HIGH CAFFEINE JBFCFNN54.9 Major depressive disorder, recurrent, unspecifiedComments:COUNCELLING AND REASSURANCE [...] intractable, without status migrainosusComments:TYLENOL OR MOTRIN PRNRELAXATION/AVOID SZNQXNKDEV62.1 Benign prostatic hyperplasia with lower urinary tract symptomsComments:LAWFJZWH01.1 NocturiaComments:CDPWXRHI60.3 OverweightComments:EXERCISE REGURALYDIET FYETMAYASDWM01.30 Unspecified disorder of binocular visionComments:USE GLASSES/CONTACTSF/U WITH TUMIXVUYMXEILA17.9 Vitamin D deficiency, unspecifiedComments:INCREASE EXPOSURE TO SUNREVIEW OF DIETK31.84 GastroparesisComments:F/U WITH REGULATORY ASSISTANT PRN Functional Status Description No Information Available Mental Status Description No Information Available Referrals Description No Information Available
--- OUTSIDE RECORDS SUMMARY | 2019-08-19 16:12 | XMS REPORT | Continuity of Care Document ---
:1955 External Reference #:[id number] Author Name Kishore Lewis M.D. Address [address] [place] [address] [place] [id number] Problems Active Problems Provider Date Pure hypercholesterolemia [...] ne/31G X 8mm 31G X 8 mm [facility] Bas[facility] Kwikpen Inject 25 Units 30ml E11.65 Kishore Lewis Subcutaneously Brice NarvaezDTaqueria 9 100Unit/ML Solution Daily Pen-Inject Onetouch Delica Use For Fingersticks 100units E11.65 Kishore Lewis Lancets Extra Fine To Test Fasting Dory Narvaez 9 33G Blood Sugar Before [facility] Meals And AT Bedtime Onetouch Ultra Use as Directed 1units E11.65 Kishore Lewis Control MBrice MengDTaqueria 9 Solution Pioglitazone HCL Take 1 Tablet Daily 90tabs E11.65 Kishore eLwis 45mg M. MTaqueriaDTaqueria 9 Tablets Cyclobenzaprine HCL 1 tab by mouth three 90tabs M54.5 Kishore Lewis 5mg times a day as Dory Narvaez 8 Tablets needed Omeprazole Take 1 Capsule Daily 90caps K21.0 [facility] 20mg M., M.D. [address] Gamal Mcclure fs qc and at bedtime 100units E11.65 [facility] as needed M., M.D. 8 Strips Janumet Take 1 Tablet Twice 180tabs E11.65 [facility] 50-1000mg A Day M., M.D. 0 Tablets Atorvastatin Calcium Take 1 Tablet AT 90tabs E78.2 [facility] Bedtime M., M.D. 0 20mg Tablets Cetirizine HCL take one tablet by 90tabs J30.9 [facility] 10mg mouth every day M., M.D. 0 Tablets Sertraline HCL 1 by mouth every day 30tabs F33.9 [facility] 100mg M., M.D. 0 Tablets F41.9 Risperidone 1 tab by mouth at 90tabs F20.9 [facility] 1mg Tablets bedtime M.D. Risperidone 1 tab by mouth 90tabs F20.9 [facility]., 0.5mg Tablets M.D. Clozapine 2 by mouth at 180tabs F41.9 [facility]., 200mg Tablets bedtime M.D. F20.9 G47.00 Advair Diskus inhale one puff 180units J45.909 [facility], 250-50mcg/Dose by mouth twice a M.D. Aerosol day J44.9 History Medications BD Pen use as 100units E78.2 [facility], 01/08/2019 - Needle/Short/Ultra-Fine/31G X directed 2-3 [facility], 04/10/2019 8mm 31G X 8 times per day M.D. mm Misc Medications Administered in Office Medication SIG Qnty Indications Ordering Provider Date Intradermal Manteleuterio Flores N.P. 02/27/2018 Injection Intradermal Mantoux Morro Flores N.P. 02/20/2018 Injection Immunizations CPT Code Status Date Vaccine Lot # [id number] Given 02/11/2019 Flu Vaccine 3+Yrs Old(Fluzone) [id number] Given 03/01/2018 Flu Vaccine [id number] Vital Signs Date Vital Result Comment 06/26/2019 2:27pm BP Systolic 145 mmHg BP Diastolic 79 mmHg Height 72 inches 6'0" Weight 240.00 lb BMI (Body Mass Index) 32.5 kg/m2 Heart Rate 89 /min Respiratory Rate 16 /min 06/12/2019 2:26pm BP Systolic 138 mmHg BP Diastolic 79 mmHg Height 72 inches 6'0" Weight 241.00 lb BMI (Body Mass Index) 32.7 kg/m2 Heart Rate 89 /min Respiratory Rate 16 /min Results Test Acquired Date Facility Test Result H/L Range Note CBC With Diff 06/12/2019 [facility] WBC 10.0 10*3/uL (4.1-11.0) [address] (607)- - RBC 4.57 10*6/uL Low (4.60-6.10) HGB 13.2 g/dL Low (13.5-18.0) HCT 37.6 % Low (41.0-53.0) MCV 82.3 fL (80.0-95.0) MCH 28.9 pg (27.0-32.0) MCHC 35.1 g/dL (32.0-36.0) RDW 14.6 % High (10.5-14.5) PLT 209 10*3/uL (150-450) MPV 6.7 fL Low (7.1-10.7) Neut % 76.7 % High (35.0-75.0) Lymph % 15.3 % Low (16.0-52.0) Kimble % 7.6 % (0.0-8.0) Eos % 0.0 % (0.0-5.0) Baso % 0.4 % (0.0-4.0) Neut # 7.7 10*3/uL (1.8-7.7) Lymph # 1.5 10*3/uL (1.2-4.8) Kimble # 0.8 10*3/uL (0.0-0.8) Eos # 0.0 10*3/uL (0.0-0.5) Baso # 0.0 10*3/uL (0.0-0.2) CMP 06/12/2019 [facility] Sodium 140 mmol/L (136-145) [address] (60)- - Potassium 3.9 mmol/L (3.6-5.2) Chloride 106 [...] <SEE NOTE> 1 Hemoglobin A1c 06/12/2019 [facility] Hemoglobin A1c @ 7.1 % High (4.0- 6.0) 2 [address] (783)- - Est Average Glucose 157 mg/dL Lipid 06/12/2019 [facility] Cholesterol @ 172 mg/dL (0-200) [address] (604)- - Triglyceride @ 174 mg/dL (30-200) HDL Cholesterol @ 90 mg/dL (>40) 3 Chol/HDL Ratio 1.9 RATIO 4 LDL Chol (Calc) 47 mg/dL (<130) 5 Laboratory 06/12/2019 [facility] TSH,Ultrasensitive @ 2.920 (0.360- 4.170) test finding [address] mIU/L (607)- - CBC With Diff 04/10/2019 [facility] WBC 6.4 (4.1-11.0) [address] 10*3/uL (607)- - RBC 4.94 10*6/uL (4.60-6.10) HGB 14.4 g/dL (13.5-18.0) HCT 41.5 % (41.0-53.0) MCV 83.9 fL (80.0-95.0) MCH 29.1 pg (27.0-32.0) MCHC 34.7 g/dL (32.0-36.0) RDW 14.6 % High (10.5-14.5) PLT 229 10*3/uL (150-450) MPV 6.6 fL Low (7.1-10.7) Neut % 74.8 % (35.0-75.0) Lymph % 16.8 % (16.0-52.0) Kimble % 8.1 % High (0.0-8.0) Eos % 0.0 % (0.0-5.0) Baso % 0.3 % (0.0-4.0) Neut # 4.8 10*3/uL (1.8-7.7) Lymph # 1.1 10*3/uL Low (1.2-4.8) Kimble # 0.5 10*3/uL (0.0-0.8) Eos # 0.0 10*3/uL (0.0-0.5) Baso # 0.0 10*3/uL (0.0-0.2) CMP 04/10/2019 [facility] Sodium 140 mmol/L (136-145) [facility] (607)- - Potassium 4.1 mmol/L [...] Interpretation <SEE NOTE> 6 Lipid 04/10/2019 [facility] Cholesterol @ 196 mg/dL (0-200) [facility] (607)- - Triglyceride @ 88 mg/dL (30-200) HDL Cholesterol @ 93 mg/dL (>40) 7 Chol/HDL Ratio 2.1 RATIO 8 LDL Chol (Calc) 85 mg/dL (<130) 9 Laboratory 04/10/2019 [facility] TSH,Ultrasensitive @ 2.710 (0.360- 4.170) test finding [address] [facility] mIU/L (607)- - Hemoglobin 04/10/2019 [facility] Hemoglobin A1c @ 7.8 % High (4.0-6.0) 10 A1c [facility] (607)- - Est Average Glucose 177 mg/dL Laboratory test 04/10/2019 [facility] 25 Hydroxy Vit D 29 ng/mL Low (31 -100) 11 finding [address] [facility] @ (607)- - Laboratory test 02/04/2019 [facility] TSH,Ultrasensiti 4.050 (0.360- 4.170 finding [address] [facility] ve @ mIU/L ) (607)- - Lipid 02/04/2019 [facility] Cholesterol @ 169 mg/dL (0-200) [facility] (607)- - Triglyceride @ 249 mg/dL High (30-200) HDL Cholesterol @ 67 mg/dL (>40) 12 Chol/HDL Ratio 2.5 RATIO 13 LDL Chol (Calc) 52 mg/dL (<130) 14 Hemoglobin A1c 02/04/2019 [facility] Hemoglobin A1c @ 9.0 % High (4.0- 6.0) 15 [address] [facility] (607)- - Est Average Glucose 212 mg/dL CMP 02/04/2019 [facility] Sodium 139 mmol/L (136-145) [facility] (607)- - Potassium 4.2 mmol/L (3.6-5.2) Chloride 104 [...] >60 ml/min/1.73m2 (>59) GFR Interpretation <SEE NOTE> 16 CBC With Diff 02/04/2019 [facility] WBC 5.1 10*3/uL (4.1-11.0) [facility] (607)- - RBC 4.59 10*6/uL Low (4.60-6.10) HGB 13.6 g/dL (13.5-18.0) HCT 38.5 % Low (41.0-53.0) MCV 84.1 fL (80.0-95.0) MCH 29.6 pg (27.0-32.0) MCHC 35.2 g/dL (32.0-36.0) RDW 14.3 % (10.5-14.5) PLT 196 10*3/uL (150-450) MPV 7.0 fL Low (7.1-10.7) Neut % 72.1 % (35.0-75.0) Lymph % 19.2 % (16.0-52.0) Kimble % 8.5 % High (0.0-8.0) Eos % 0.0 % (0.0-5.0) Baso % 0.2 % (0.0-4.0) Neut # 3.7 10*3/uL (1.8-7.7) Lymph # 1.0 10*3/uL Low (1.2-4.8) Kimble # 0.4 10*3/uL (0.0-0.8) Eos # 0.0 10*3/uL (0.0-0.5) Baso # 0.0 10*3/uL (0.0-0.2) CBC With Diff 12/26/2018 [facility] WBC 7.1 10*3/uL (4.1-11.0) [address] (607)- - RBC 4.57 10*6/uL Low (4.60-6.10) HGB 13.5 g/dL (13.5-18.0) HCT 38.8 % Low (41.0-53.0) MCV 85.0 fL (80.0-95.0) MCH 29.5 pg (27.0-32.0) MCHC 34.7 g/dL (32.0-36.0) RDW 13.7 % (10.5-14.5) PLT 216 10*3/uL (150-450) MPV 6.8 fL Low (7.1-10.7) Neut % 74.0 % (35.0-75.0) Lymph % 18.4 % (16.0-52.0) Kimble % 7.4 % (0.0-8.0) Eos % 0.0 % (0.0-5.0) Baso % 0.2 % (0.0-4.0) Neut # 5.3 10*3/uL (1.8-7.7) Lymph # 1.3 10*3/uL (1.2-4.8) Kimble # 0.5 10*3/uL (0.0-0.8) Eos # 0.0 10*3/uL (0.0-0.5) Baso # 0.0 10*3/uL (0.0-0.2) CMP 12/26/2018 [facility] Sodium 137 mmol/L (136-145) [address] (167)- - Potassium 4.4 mmol/L (3.6-5.2) Chloride 102 mmol/L (100-108) Co2 27 mmol/L (22-31) Anion Gap 8 mmol/L (7-16) Urea Nitrogen 15 mg/dL (7-24) Creatinine 1.17 mg/dL (0.80-1.30) BUN/Creat Ratio 12.8 RATIO (10.0-20.0) Glucose 323 mg/dL High (70-99) Calcium 8.6 mg/dL (8.4-10.2) Total Protein 6.9 g/dL (6.4-8.2) Albumin 4.0 g/dL (3.2-4.5) Globulin 2.9 g/dL (2.7-4.3) Alb/Glob Ratio 1.4 RATIO Alkaline Phosphatase 124 U/L High (45-117) Bilirubin,Total 0.4 mg/dL (0.0-1.0) Ast (Sgot) 20 U/L (11-39) Alt (SGPT) 30 U/L (12-78) GFR >60 ml/min/1.73m2 (>59) GFR ( Amer) >60 ml/min/1.73m2 (>59) GFR Interpretation <SEE NOTE> 17 Lipid 12/26/2018 [facility] Cholesterol @ 164 mg/dL (0-200) [address] (720)- - Triglyceride @ 151 mg/dL (30-200) HDL Cholesterol @ 72 mg/dL (>40) 18 Chol/HDL Ratio 2.3 RATIO 19 LDL Chol (Calc) 62 mg/dL (<130) 20 Hemoglobin A1c 12/26/2018 [facility] Hemoglobin A1c @ 9.1 % High (4.0- 6.0) 21 [address] (224)- - Est Average Glucose 214 mg/dL Laboratory 12/26/2018 [facility] TSH,Ultrasensitive @ 2.860 (0.360- 4.170) test finding [address] mIU/L (635)- - 1 NORMAL KIDNEY FUNCTION OR MILD DISEASE - GFR >OR= 60 CHRONIC KIDNEY DISEASE - GFR 15 - 59 RENAL FAILURE - GFR <15 Est. GFR calculation based on the MDRD study equation, which assumes a steady state for creatinine. Est. GFR should not be used for medication dosing. 2 Performed using ReClaims immunoassay. Care must be taken when interpreting [...] HIGH > 189 10 Performed using Siemens Ransom immunoassay. Care must be taken when interpreting [...] HAS NOT BEEN ESTABLISHED USING THIS METHOD. 12 PER NCEP ATP III GUIDELINES: RESULTS LOWER THAN 40 MG/DL ARE SUGGESTIVE OF INCREASED RISK FOR CORONARY ARTERY DISEASE. RESULTS > OR = TO 60 MG/DL ARE CONSIDERED A NEGATIVE RISK FACTOR. 13 INTERPRETATION OF CHOL-HDL RATIO CHD RISK FEMALE MALE VERY HIGH >8.3 >14.3 HIGH 5.6- 8.3 6.7- 14.3 AVERAGE 3.7- 5.6 4.0- 6.7 BELOW AVERAGE 2.5- 3.7 2.7- 4.0 PROTECTED <2.5 <2.7 14 PER NCEP ATP III GUIDELINES: OPTIMAL < 100 NEAR OPTIMAL 100 - 129 BORDERLINE HIGH 130 - 159 HIGH 160 - 189 VERY HIGH > 189 15 Performed using Siemens Ransom immunoassay. Care must be taken when interpreting HbA1c results in patients with a hemoglobin variant or decreased erythrocyte lifespan. Values 5.7 - 6.4% suggest prediabetes. Values >=6.5% are diagnostic for diabetes. REFERENCE: DIABETES CARE 2018: 41(S13-S27). 16 NORMAL KIDNEY FUNCTION OR MILD DISEASE - GFR >OR= 60 CHRONIC KIDNEY DISEASE - GFR 15 - 59 RENAL FAILURE - GFR <15 Est. GFR calculation based on the MDRD study equation, which assumes a steady state for creatinine. Est. GFR should not be used for medication dosing. 17 NORMAL KIDNEY FUNCTION OR MILD DISEASE - GFR >OR= 60 CHRONIC KIDNEY DISEASE - GFR 15 - 59 RENAL FAILURE - GFR <15 Est. GFR calculation based on the MDRD study equation, which assumes a steady state for creatinine. Est. GFR should not be used for medication dosing. 18 PER NCEP ATP III GUIDELINES: RESULTS LOWER THAN 40 MG/DL ARE SUGGESTIVE OF INCREASED RISK FOR CORONARY ARTERY DISEASE. RESULTS > OR = TO 60 MG/DL ARE CONSIDERED A NEGATIVE RISK FACTOR. 19 INTERPRETATION OF CHOL-HDL RATIO CHD RISK FEMALE MALE VERY HIGH >8.3 >14.3 HIGH 5.6- 8.3 6.7- 14.3 AVERAGE 3.7- 5.6 4.0- 6.7 BELOW AVERAGE 2.5- 3.7 2.7- 4.0 PROTECTED <2.5 <2.7 20 PER NCEP ATP III GUIDELINES: OPTIMAL < 100 NEAR OPTIMAL 100 - 129 BORDERLINE HIGH 130 - 159 HIGH 160 - 189 VERY HIGH > 189 21 Performed using Siemens Ransom immunoassay. Care must be taken when interpreting HbA1c results in patients with a hemoglobin variant or decreased erythrocyte lifespan. Values 5.7 - 6.4% suggest prediabetes. Values >=6.5% are diagnostic for diabetes. REFERENCE: DIABETES CARE 2018: 41(S13-S27). Procedures Date Code Description Status 05/01/2019 65657 EKG Completed 06/11/2013 [id number] Colonoscopy Completed Medical Devices Description No Information Available Encounters Type Date Location Provider Dx Diagnosis Office Visit 06/26/2019 [facility] Kishore Lewis E78.2 Mixed hyperlipidemia 2:30p M.DTaqueria I95.1 Orthostatic hypotension J44.9 Chronic obstructive pulmonary [...] unspecified K31.84 Gastroparesis Office Visit 06/12/2019 2:30p [facility] Kishore Lewis E78.2 Mixed hyperlipidemia Dory [...] Chest pain, unspecified Office Visit 05/01/2019 3:00p [facility] E78.2 Mixed hyperlipidemia Dory Narvaez I95.1 Orthostatic [...] Chest pain, unspecified Office Visit 04/10/2019 9:00a [facility] E78.2 Mixed hyperlipidemia Dory Narvaez I95.1 Orthostatic [...] w abnormal findings Office Visit 02/11/2019 3:00p [facility] Kishore Lewis E78.2 Mixed hyperlipidemia Dory [...] Encounter for immunization Office Visit 02/04/2019 2:30p [facility] Kishore Leiws E78.2 Mixed hyperlipidemia Dory Narvaez I95.1 Orthostatic [...] D deficiency, unspecified K31.84 Gastroparesis Office Visit 12/31/2018 2:00p [facility] Kishore Lewis E78.2 Mixed hyperlipidemia Dory [...] D deficiency, unspecified K31.84 Gastroparesis Office Visit 12/26/2018 1:15p [facility] Kishore Lewis E78.2 Mixed hyperlipidemia Dory [...] K31.84 Gastroparesis Assessments Date Code Description Provider 06/26/2019 E78.2 Mixed hyperlipidemia Kishore Lewis M.D. [...] Type 2 diabetes mellitus with hyperglycemia Kishore Leiws M.D. 02/04/2019 L20.9 Atopic dermatitis, unspecified Kishore [...] M.D. 02/04/2019 K31.84 Gastroparesis Kishore Lewis M.D. 12/31/2018 E78.2 Mixed hyperlipidemia Kishore Lewis M.D. 12/31/2018 I95.1 Orthostatic hypotension Kishore Lewis M.D. 12/31/2018 J44.9 Chronic obstructive pulmonary disease, Kishore Lewis M.D. unspecified 12/31/2018 J45.909 Unspecified asthma, uncomplicated Kishore Lewis M.D. 12/31/2018 E11.65 Type 2 diabetes mellitus with hyperglycemia Kishore Lewis M.D. 12/31/2018 L20.9 Atopic dermatitis, unspecified Kishore Lewis M.D. 12/31/2018 J30.9 Allergic rhinitis, unspecified Kishore Lewis M.D. 12/31/2018 K21.0 Gastro-esophageal reflux disease with Kishore Lewis M.D. esophagitis 12/31/2018 K30 Functional dyspepsia Kishore Lewis M.D. 12/31/2018 K59.00 Constipation, unspecified Kishore Lewis M.D. 12/31/2018 M15.9 Polyosteoarthritis, unspecified Kishore Lewis M.D. 12/31/2018 M54.5 Low back pain Kishore Lewis M.D. 12/31/2018 M79.606 Pain in leg, unspecified Kishore Lweis M.D. 12/31/2018 F41.9 Anxiety disorder, unspecified Kishore Lewis M.D. 12/31/2018 F33.9 Major depressive disorder, recurrent, Kishore Lewis M.D. unspecified 12/31/2018 G47.00 Insomnia, unspecified Kishore Lewis M.D. 12/31/2018 F20.9 Schizophrenia, unspecified Kishore Lewis M.D. 12/31/2018 I45.10 Unspecified right bundle-branch block Kishore Lewis M.D. 12/31/2018 G43.009 Migraine without aura, not intractable, Kishore Lewis M.D. without status migra 12/31/2018 N40.1 Benign prostatic hyperplasia with lower iKshore Lewis M.D. urinary tract sympto 12/31/2018 R35.1 Nocturia Kishore Lewis M.D. 12/31/2018 E66.3 Overweight Kishore Lewis M.D. 12/31/2018 H53.30 Unspecified disorder of binocular vision Kishore Lewis M.D. 12/31/2018 E55.9 Vitamin D deficiency, unspecified Kishore Lewis M.D. 12/31/2018 K31.84 Gastroparesis Kishore Lewis M.D. 12/26/2018 E78.2 Mixed hyperlipidemia Kishore Lewis M.D. 12/26/2018 I95.1 Orthostatic hypotension Kishore Lewis M.D. 12/26/2018 J44.9 Chronic obstructive pulmonary disease, Kishore Lewis M.D. unspecified 12/26/2018 J45.909 Unspecified asthma, uncomplicated Kishore Lewis M.D. 12/26/2018 E11.65 Type 2 diabetes mellitus with hyperglycemia Kishore Lewis M.D. 12/26/2018 L20.9 Atopic dermatitis, unspecified Kishore Lewis M.D. 12/26/2018 J30.9 Allergic rhinitis, unspecified Kishore Lewis M.D. 12/26/2018 K21.0 Gastro-esophageal reflux disease with Kishore Lewis M.D. esophagitis 12/26/2018 K30 Functional dyspepsia Kishore Lewis M.D. 12/26/2018 K59.00 Constipation, unspecified Kishore Lewis M.D. 12/26/2018 M15.9 Polyosteoarthritis, unspecified Kishore Lewis M.D. 12/26/2018 M54.5 Low back pain Kishore Lewis M.D. 12/26/2018 M79.606 Pain in leg, unspecified Kishore Lewis M.D. 12/26/2018 F41.9 Anxiety disorder, unspecified Kishore Lewis M.D. 12/26/2018 F33.9 Major depressive disorder, recurrent, Kishore Lewis M.D. unspecified 12/26/2018 G47.00 Insomnia, unspecified Kishore Lewis M.D. 12/26/2018 F20.9 Schizophrenia, unspecified Kishore Lewis M.D. 12/26/2018 I45.10 Unspecified right bundle-branch block Kishore Lewis M.D. 12/26/2018 G43.009 Migraine without aura, not intractable, Kishore Lewis M.D. without status migra 12/26/2018 N40.1 Benign prostatic hyperplasia with lower Kishore Lewis M.D. urinary tract sympto 12/26/2018 R35.1 Nocturia Kishore Lewis M.D. 12/26/2018 E66.3 Overweight Kishore Lewis M.D. 12/26/2018 H53.30 Unspecified disorder of binocular vision Kishore Lewis M.D. 12/26/2018 E55.9 Vitamin D deficiency, unspecified Kishore Lewis M.D. 12/26/2018 K31.84 Gastroparesis Kishore Lewis M.D. Plan of Treatment Future Appointment(s):12/23/2019 2:30 pm - Kishore Lewis M.D. at [place] [facility]/26/2019 - Kishore Lewis M.D.E78.2 Mixed hyperlipidemiaComments:DIET REVIEWED CONTINUE DIETWT LOSSF/U LAB FBWI95.1 Orthostatic hypotensionComments: STABLE AND NUPFEREBIXZYM35.9 Chronic obstructive pulmonary disease, unspecifiedComments:HCXWXDF52.909 Unspecified asthma, uncomplicatedComments:MDI / NEBULIZER TX PRN AVOID EXPOSURE TO SMOKING OR GAYZAM97.65 Type 2 diabetes mellitus with hyperglycemiaComments:DIET REVIEWED CONTINUE DIETWT LOSSFS qAC AND HS PRN F/U FBW INSULIN WAS INCREASED TO 40 U LAST QBYKCK15.9 Atopic dermatitis, unspecifiedComments:SKIN CARE INSTRUCTIONS LOTION OR BABY OIL 2-3 APPLICATION PER DAYUSE MOISTURIZING SOAPAVOID PROLONGED WATER EXPOSUREAVOID USING HOT WATER IN KTQBZKU96.9 Allergic rhinitis, unspecifiedComments:INCREASE PO FLUID USE ANTIHISTAMINE PRN SECOND HAND SMOKING ZLSWUGLHEL21.0 Gastro- esophageal reflux disease with esophagitisComments:AVOID CAFFEINE, ETOH AND SPICY FOODSTUMS OR MYLANTA PRN CALL WITH PROBLEMS OR [id number] Functional dyspepsiaComments:AVOID CAFFEINE, ETOH AND SPICY FOODSTUMS OR MYLANTA PRN CALL WITH PROBLEMS OR ZIANTIXEW01.00 Constipation, unspecifiedComments:MOM OR MIRALAX PRNHIGH FIBER DIETINCREASE PO CGOCJF81.9 Polyosteoarthritis, unspecifiedComments:EXERCISE/HEAT/MESSAGETYLENOL OR MOTRIN PRNAVOID HEAVY LIFTINGWT LOSS DUR UZMEIZUJ51.5 Low back painComments:EXERCISE/HEAT / MESSAGEAVOID HEAVY LIFTING WT LOSSTYLENOL OR MOTRIN PRN DUR DEEYUFVS09.606 Pain in leg, unspecifiedComments:TYLENOL OR MOTRIN PRN EXERCISE/HEAT/MESSAGE DUR ZWSKLERO10.9 Anxiety disorder, unspecifiedComments:COUNCELLING AND REASSURANCE RELAXATION TECHNIQUES DISCUSSEDCOUNSELED RE: STRESSORS IN LIFE AVOID ALLENERGY/HIGH CAFFEINE XHEALBX45.9 Major depressive disorder, recurrent, unspecifiedComments:COUNCELLING AND REASSURANCE [...] intractable, without status migrainosusComments:TYLENOL OR MOTRIN PRNRELAXATION/AVOID QBGEMZXVBO91.1 Benign prostatic hyperplasia with lower urinary tract symptomsComments:GJJZMWWA28.1 NocturiaComments:GCNBTFPK14.3 OverweightComments:EXERCISE REGURALYDIET MEOKSIUQAJHI24.30 Unspecified disorder of binocular visionComments:USE GLASSES/CONTACTSF/U WITH NQDHPWFCXAMOOE47.9 Vitamin D deficiency, unspecifiedComments:INCREASE EXPOSURE TO SUNREVIEW OF DIETK31.84 GastroparesisComments:F/U WITH GANG 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
[2019-08-19] MEDS ORDERED: Acetaminophen TAB* 325 MG ONE (19:25)
[2019-08-19] MEDS ORDERED: Acetaminophen TAB* 325 MG PO ONE (19:27)
[2019-08-19 23:21] LABS: ABS Lymphocytes 1.9 10^3/ul (1.0-4.8); ABS Monocytes 0.8 10^3/ul (0-0.8); ABS Neutrophils 6.3 10^3/ul (1.5-7.7); Hematocrit 36 % (42-52); Hemoglobin 12.8 g/dL (14.0-18.0); Lymphocyte % 20.7 %; Mean Corpuscular HGB Conc 35 g/dL (31-36); Mean Corpuscular Hemoglobin 30 pg (27-31); Mean Corpuscular Volume 83 fL (80-94); Mean Platelet Volume 5.9 fL (7.4-10.4); Nucleated Red Blood Cells % 0.1; Platelet Count 213 10^3/uL (150-450); Red Blood Count 4.34 10^6 /uL (4.18-5.48); Red Cell Distribution Width 15 % (10-15); White Blood Count 9.1 10^3/uL (3.5-10.8)
[2019-08-19 23:30] LABS: INR 1.12 (0.82-1.09)
[2019-08-19 23:40] LABS: ALT 23 U/L (7-52); AST 23 U/L (13-39); Albumin 4.5 g/dL (3.2-5.2); Albumin/Globulin Ratio 1.6 (1-3); Alkaline Phosphatase 78 U/L (34-104); Anion Gap 10 mmol/L (2-11); BUN/Creatinine Ratio 18.5 (8-20); Blood Urea Nitrogen 22 mg/dL (6-24); CO2 Carbon Dioxide 24 mmol/L (22-32); Calcium 9.4 mg/dL (8.6-10.3); Chloride 104 mmol/L (101-111); EGFR African American 74.7 (>60); EGFR Non-African American 61.7 (>60); Globulin 2.8 g/dL (2-4); Glucose 222 mg/dL (70-100); Magnesium 1.5 mg/dL (1.9-2.7); Potassium 3.8 mmol/L (3.5-5.0); Sodium 138 mmol/L (135-145); Total Protein 7.3 g/dL (6.4-8.9)
[2019-08-19 23:41] LABS: Troponin I 0.01 ng/mL (<0.03)
[2019-08-19 23:42] LABS: Alcohol < 10 mg/dL (<10)
--- NOTE | 2019-08-20 00:04 | ED ---
Head Injury - HPI Summary HPI Summary: Patient is a 63 y/o M presenting to [facility] with complaints of WRIGHT and unsteadiness on his feet. He states that he fell and injured his head the evening of the Superbowl (07/18/19). Patient reports that he was previously evaluated by his PCP and diagnosed with concussion. Patient states that he has been experiencing some HAs since the fall, which he has been treating with Tylenol and ibuprofen. This week, patient states that he experienced increased unsteadiness on his feet. He denies difficulty with memory, changes to vision, N /V. Patient is not on anti-coagulation therapy. No other recent falls noted. PMHx of diabetes, COPD, GERD, schizophrenia, depression, anxiety reproted. He notes PSHx of right arm surgery. He is a non-smoker and denies alcohol and substance usage. FMHx of Alzheimer's reported. Home medications and allergies are reviewed. - History Of Current Complaint Chief Complaint: EDHeadInjury Stated Complaint: DIFF WALKING/HEADACHE SENT BY PER PT Time Seen by Provider: 08/19/19 23:24 Hx Obtained From: Patient Mechanism Of Injury: Fall From A Standing Position Onset/Duration: Still Present Onset of Pain: Prior to Arrival Severity Currently: Moderate Pain Intensity: 5 Pain Scale Used: 0-10 Numeric Associated Signs And Symptoms: Other: - positive - unsteadiness on feet; negative - N/V, changes to vision, difficulty with memory - Allergies/Home Medications Allergies/Adverse Reactions: Allergies Allergy/AdvReac Type Severity Reaction Status Date / Time hay fever Allergy Rash Uncoded 08/19/19 16:08 PMH/Surg Hx/FS Hx/Imm Hx Endocrine/Hematology History: Reports: Hx Diabetes Respiratory History: Reports: Hx Chronic Obstructive Pulmonary Disease (COPD) GI History: Reports: Hx Gastroesophageal Reflux Disease Psychiatric History: Reports: Hx Anxiety, Hx Depression, Hx Schizophrenia - Surgical History Surgery Procedure, Year, and Place: right arm surgery Infectious Disease History: No Infectious Disease History: Denies: Traveled Outside the [place] in Last 30 Days - Family History Known Family History: Positive: Other - Alzheimer's - Social History Alcohol Use: None Substance Use Type: Reports: None Smoking Status (MU): Never Smoked Tobacco - Additional Comments History Additional Comments: Patient reports PMHx of diabetes, COPD, GERD, schizophrenia, anxiety, depression PSHx of right arm surgery FMHx of Alzheimer's disease Review of Systems Eyes: Other - negative - changes to vision Negative: Vomiting, Nausea Neurological/Mental Status: Other - positive - unsteadiness on feet; negative - difficulty with memory Positive: Headache All Other Systems Reviewed And Are Negative: Yes Physical Exam - Summary Physical Exam Summary: General: Well-developed, Well-nourished male. No acute distress. HEENT: Normocephalic, Atraumatic. Eyes: Conjuctiva normal, PERRL. No nystagmus. Oropharynx: Clear, mucous membranes moist, (-) exudates. Neck: Soft, FROM, (-) lymphadenopathy, (-) thyromegaly, (-) JVD. Cardiovascular: Normal sinus rhythm, (-) murmur. Lungs: Clear to auscultation bilaterally (-) wheezes, (-) rales, (-) rhonchi. Abdomen: Soft, non-tender, non-distended, (-) organomegaly, normal bowel sounds. Back: (-) CVA tenderness Extremities: No edema. Skin: Warm, dry, (-) rash. Neuro: Some finger to nose finger ataxia bilaterally. Abnormal gait. Alert and oriented x3, moves all extremities equally. No sensory deficit. Normal strength , normal sensation, normal reflexes. GCS 15. Psychiatric: Flat affect Triage Information Reviewed: Yes Vital Signs On Initial Exam: Initial Vitals Temp Pulse Resp BP Pulse Ox 96.2 F 103 18 177/94 98 08/19/19 16:04 08/19/19 16:04 08/19/19 16:04 08/19/19 16:04 08/19/19 16:04 Vital Signs Reviewed: Yes - [place] Coma Scale Best Eye Response: 4 - Spontaneous Best Motor Response: 6 - Obeys Commands Best Verbal Response: 5 - Oriented Coma Scale Total: 15 Procedures - Sedation Patient Received Moderate/Deep Sedation with Procedure: No Diagnostics - Vital Signs Vital Signs Temp Pulse Resp BP Pulse Ox 08/19/19 23:15 86 95 08/19/19 20:17 98.3 F 91 20 144/86 96 08/19/19 18:02 97.4 F 88 17 143/85 98 08/19/19 16:04 96.2 F 103 18 177/94 98 - Laboratory Lab Results: Lab Results 08/19/19 08/19/1920 Range/Units 23:10 23:10 23:10 WBC 9.1 (3.5-10.8) 10^3/uL RBC 4.34 (4.18-5.48) 10^6 /uL Hgb 12.8 L (14.0-18.0) g/dL Hct 36 L (42-52) % MCV 83 (80-94) fL MCH 30 (27-31) pg MCHC 35 (31-36) g/dL RDW 15 (10-15) % Plt Count 213 (150-450) 10^3/uL MPV 5.9 L (7.4-10.4) fL Neut % (Auto) 70.0 % Lymph % (Auto) 20.7 % [place] % (Auto) 9.0 % Eos % (Auto) 0.0 % Baso % (Auto) 0.3 % Absolute Neuts (auto) 6.3 (1.5-7.7) 10^3/ul Absolute Lymphs (auto) 1.9 (1.0-4.8) 10^3/ul Absolute Monos (auto) 0.8 (0-0.8) 10^3/ul Absolute Eos (auto) 0.0 (0-0.6) 10^3/ul Absolute Basos (auto) 0.0 (0-0.2) 10^3/ul Absolute Nucleated RBC 0.0 10^3/ul Nucleated RBC % 0.1 INR (Anticoag Therapy) 1.12 H (0.82-1.09) Sodium 138 (135-145) mmol/L Potassium 3.8 (3.5-5.0) mmol/L Chloride 104 (101-111) mmol/L Carbon Dioxide 24 (22-32) mmol/L Anion Gap 10 (2-11) mmol/L BUN 22 (6-24) mg/dL Creatinine 1.19 H (0.67-1.17) mg/dL Est GFR ( Amer) 74.7 (>60) Est GFR (Non-Af Amer) 61.7 (>60) BUN/Creatinine Ratio 18.5 (8-20) Glucose 222 H (70-100) mg/dL Lactic Acid (0.5-2.0) mmol/L Calcium 9.4 (8.6-10.3) mg/dL Magnesium 1.5 L (1.9-2.7) mg/dL Total Bilirubin 0.50 (0.2-1.0) mg/dL AST 23 (13-39) U/L ALT 23 (7-52) U/L Alkaline Phosphatase 78 (34-104) U/L Troponin I 0.01 (<0.03) ng/mL Total Protein 7.3 (6.4-8.9) g/dL Albumin 4.5 (3.2-5.2) g/dL Globulin 2.8 (2-4) g/dL Albumin/Globulin Ratio 1.6 (1-3) TSH 3.30 (0.34-5.60) mcIU/mL Serum Alcohol < 10 (<10) mg/dL 08/19/19 Range/Units 23:10 WBC (3.5-10.8) 10^3/uL RBC (4.18-5.48) 10^6 /uL Hgb (14.0-18.0) g/dL Hct (42-52) % MCV (80-94) fL MCH (27-31) pg MCHC (31-36) g/dL RDW (10-15) % Plt Count (150-450) 10^3/uL MPV (7.4-10.4) fL Neut % (Auto) % Lymph % (Auto) % [place] % (Auto) % Eos % (Auto) % Baso % (Auto) % Absolute Neuts (auto) (1.5-7.7) 10^3/ul Absolute Lymphs (auto) (1.0-4.8) 10^3/ul Absolute Monos (auto) (0-0.8) 10^3/ul Absolute Eos (auto) (0-0.6) 10^3/ul Absolute Basos (auto) (0-0.2) 10^3/ul Absolute Nucleated RBC 10^3/ul Nucleated RBC % INR (Anticoag Therapy) (0.82-1.09) Sodium (135-145) mmol/L Potassium (3.5-5.0) mmol/L Chloride (101-111) mmol/L Carbon Dioxide (22-32) mmol/L Anion Gap (2-11) mmol/L BUN (6-24) mg/dL Creatinine (0.67-1.17) mg/dL Est GFR ( Amer) (>60) Est GFR (Non-Af Amer) (>60) BUN/Creatinine Ratio (8-20) Glucose (70-100) mg/dL Lactic Acid 1.4 (0.5-2.0) mmol/L Calcium (8.6-10.3) mg/dL Magnesium (1.9-2.7) mg/dL Total Bilirubin (0.2-1.0) mg/dL AST (13-39) U/L ALT (7-52) U/L Alkaline Phosphatase (34-104) U/L Troponin I (<0.03) ng/mL Total Protein (6.4-8.9) g/dL Albumin (3.2-5.2) g/dL Globulin (2-4) g/dL Albumin/Globulin Ratio (1-3) TSH (0.34-5.60) mcIU/mL Serum Alcohol (<10) mg/dL Result Diagrams: 08/19/19 23:10 08/19/19 23:10 Lab Statement: Any lab studies that have been ordered have been reviewed, and results considered in the medical decision making process. - CT BRAIN CT CT Interpretation Completed By: Radiologist Summary of CT Findings: IMPRESSION: 1. There is a large right-sided subdural hematoma with both acute and hypodense. subacute or chronic hemorrhage. This measures 2.4 cm in thickness. Additional. acute subdural hemorrhage is identified in the left parafalcine region and left. frontal convexity. A follow -up head CT in 12-24 hours is recommended. Neurosurgical consultation also recommended. 2. There is approximately 1.5 cm of midline shift to the left. 3. There is an asymmetric increase in extra-axial fluid within the right. cerebellar convexity. THIS REPORT WAS REVIEWED BY ED PHYSICIAN. Re-Evaluation - Re-Evaluation First Eval Re-Evaluation Time: 00:15 Comment: Discussed CT results with the patient. Second Eval Re-Evaluation Time: 00:43 Comment: Initial report given to transfer center. Head Injury Course/Dx Course Of Treatment: 63-year-old male presents from home by private vehicle with unsteady gait. He states he fell about a month ago. The night of [place] Sunday. Has been having headaches off and on since then. Did see his primary care physician. Over the last week however he has been having very unsteady gait. States he is having trouble walking and has fallen. No problems with his memory or speech. No tingling numbness or weakness in his hands or his feet. No nausea or vomiting. No visual changes. He is taking Tylenol ibuprofen for his headaches. On physical exam he has some ataxia. Otherwise neuro exam is within normal limits. Vital signs are stable. Workup demonstrates an acute subdural hematoma. Also a subacute versus chronic component to the subdural hematoma. Midline shift of 15 mm. Laboratories demonstrated no significant findings. INR 1.12. Discussed with neurosurgery long distance operator. He felt patient would need surgery. However he is unavailable for the rest of the week. Hospitalist would not feel comfortable keeping the patient here postop without neurosurgery on site. Discussed transfer. [facility] beds available. [facility] in [facility] accepted the patient. Discussed with neurosurgeon Dr. Mcdowell. Patient will go to the ED, accepted by Dr. Lee. Transferred by ambulance. During ED course , patient received Tylenol 650 mg PO. - Diagnoses Provider Diagnoses: Subdural hematoma - Physician Notifications Discussed Care Of Patient With: Deniz Preston Time Discussed With Above Provider: 00:01 Instructed by Provider To: Other - [id number] - Radiologist communicates Brain CT impression via phone. 0001 - Patient's case discussed with Dr. Preston, Dr. Preston to review CT and call back. 0025 - Dr. Preston reviewed CT and recommends transfer of patient. 0103 - Patient's case was discussed with Dr. Jalil Issa, [facility] ED, who reports that [facility] is at full capacity, will attempt to contact [facility]. 0116 - Patient's case was discussed with Dr. Raymond Mcdowell, neurosurgery, and Tanja Bai, , from [facility]. Patient is accepted for ED to ED transfer by Dr. Bai. Discharge ED - Sign-Out/Discharge Documenting (check all that apply): Patient Departure - transfer - Discharge Plan Condition: Stable Disposition: TRANS HIGHER LVL OF CARE FAC Referrals: Kishore Lewis MD [Primary Care Provider] - - Billing Disposition and Condition Condition: STABLE Disposition: Trans Higher Lvl of Care Fac - Attestation Statements Document Initiated by Scribe: Yes Documenting Scribe: LAI ESPARZA Provider For Whom Scribe is Documenting (Include Credential): NICOLLE BARRIENTOS MD Scribe Attestation: I, LAI ESPARZA, scribed for NICOLLE BARRIENTOS MD on 08/20/19 at 0148. Scribe Documentation Reviewed: Yes Provider Attestation: The documentation as recorded by the ministerioibeLAI accurately reflects the service I personally performed and the decisions made by me, NICOLLE BARRIENTOS MD Status of Scribe Document: Viewed
[2019-08-20] MEDS ORDERED: Metoclopramide IV* 5 MG/ML 2 ML VIAL IV ONE (00:50)
[2019-08-20 02:59] VITALS: BP 141/92
== END 2019-08-20 02:58 | disposition short-term general hospital (02) ==
LOC: ED 16:01
DX: I62.00 Nontraumatic subdural hemorrhage, unspecified (principal); R51 Headache; E11.9 Type 2 diabetes mellitus without complications; J44.9 Chronic obstructive pulmonary disease, unspecified; F41.9 Anxiety disorder, unspecified; F32.9 Major depressive disorder, single episode, unspecified; K21.9 Gastro-esophageal reflux disease without esophagitis
CPT/HCPCS: 36415; 70450; 80053; 80320; 83605; 83735; 84443; 84484; 85025; 85610; 96374; 99284; A9270-GY; G0480; J2765